=== PATIENT | male | born 1960 | race Caucasian/White ===

== ENCOUNTER 2018-01-15 15:17 | Observation (INO) | payer MEDICAID ==
[2018-01-15] MEDS ORDERED: Sodium Chloride 0.9% 1,000 ML IV SCH (16:45)
--- NOTE | 2018-01-15 16:48 | EDM.PDOC ---
ED HPI GENERAL MEDICAL PROBLEM - General Chief Complaint: General Stated Complaint: ELEVATED POTASSIUM IN URINE PER ESSENTIA Time Seen by Provider: 01/15/18 15:39 Source of Information: Reports: Patient History Limitations: Reports: No Limitations - History of Present Illness INITIAL COMMENTS - FREE TEXT/NARRATIVE: 57 yo diabetic presents to ER following post hospital clinic evaluation. Pt was found in clinic to have potassium of 6.2. He had recent hospitalization for sepsis related to right foot wound. Pt is in the process of moving to the area, he is currently staying with relative. He was feeling very good post DC until this Afternoon mild light headedness. Blood sugars have been high. snf insulin use. appetite has returned to normal. afebrile. denies CP SOB, or headache. Treatments LEAD TECHNICAL ARCHITECT: Reports: Other (see below) Other Treatments LEAD TECHNICAL ARCHITECT: seen in clinic foot ulcer Pain Score (Numeric/FACES): 3 - Related Data Allergies Allergy/AdvReac Type Severity Reaction Status Date / Time latex Allergy Hives Verified 01/15/18 15:38 Home Meds: Home Meds Aspirin [Halfprin] 81 mg PO DAILY 01/15/18 [History] Clindamycin HCl [Cleocin] 300 mg PO Q6H 01/15/18 [History] DULoxetine HCl [Cymbalta] 60 mg PO BID 01/15/18 [History] Gabapentin [Neurontin] 600 mg PO BID 01/15/18 [History] Insulin Aspart [NovoLOG] 1 unit SUBCUT TIDMEALS 01/15/18 [History] Insulin Glargine,Hum.Rec.Anlog [Basaglar Kwikpen U-100] 60 unit SQ BID 01/15/18 [History] Tamsulosin [Tamsulosin 24 Hr] 0.4 mg PO DAILY 01/15/18 [History] atorvaSTATin [Lipitor] 80 mg PO DAILY 01/15/18 [History] ED ROS GENERAL - Review of Systems Review Of Systems: See Below Constitutional: Denies: Fever, Chills, Malaise HEENT: Denies: Sinus Problem Respiratory: Denies: Shortness of Breath, Wheezing Cardiovascular: Denies: Chest Pain GI/Abdominal: Denies: Abdominal Pain, Nausea, Vomiting Neurological: Reports: Other (right foot wound) ED EXAM, GENERAL - Physical Exam Exam: See Below Exam Limited By: No Limitations General Appearance: Alert, WD/WN, No Apparent Distress Head: Atraumatic, Normocephalic Neck: Normal Inspection, Supple, Non-Tender, Full Range of Motion. No: Lymphadenopathy (R), Lymphadenopathy (L) Respiratory/Chest: No Respiratory Distress, Lungs Clear, Normal Breath Sounds, No Accessory Muscle Use, Chest Non-Tender Cardiovascular: Normal Peripheral Pulses, Regular Rate, Rhythm, No Edema, No Murmur GI/Abdominal: Normal Bowel Sounds, Soft, Non-Tender Neurological: Alert, Oriented Psychiatric: Normal Affect, Normal Mood Skin Exam: Warm, Dry, Intact, Wound/Incision (right foot/toes mild edema, mild erythemic, scaling skin, normal temp to touch) Course - Vital Signs Last Recorded V/S: Last Vital Signs Temp 35.0 C L 01/15/18 15:51 Pulse 91 01/15/18 18:43 Resp 16 01/15/18 18:43 BP 127/81 01/15/18 18:43 Pulse Ox 98 01/15/18 15:36 - Orders/Labs/Meds Orders: Active Orders 24 hr Category Date Time Status EKG Documentation Completion [RC] ASDIRECTED Care 01/15/18 16:38 Active Sodium Chloride 0.9% [Normal Saline] 1,000 ml Med 01/15/18 16:45 Active IV ASDIRECTED EKG 12 Lead [EK] Routine Ther 01/15/18 16:38 Ordered Medication Orders Sodium Chloride (Normal Saline) 1,000 mls @ 500 mls/hr IV ASDIRECTED LYNDSEY Last Admin: 01/15/18 17:25 Dose: 500 mls/hr Labs: Laboratory Tests 01/15/18 01/15/18 01/15/18 Range/Units 16:56 16:57 18:46 WBC 9.5 (4.5-11.0) K/uL RBC 4.50 (4.30-5.90) M/uL Hgb 14.4 (12.0-15.0) g/dL Hct 41.8 (40.0-54.0) % MCV 93 (80-98) fL MCH 32 H (27-31) pg MCHC 34 (32-36) % Plt Count 419 H (150-400) K/uL Neut % (Auto) 58 (36-66) % Lymph % (Auto) 34 (24-44) % [place] % (Auto) 6 (2-6) % Eos % (Auto) 2 (2-4) % Baso % (Auto) 1 (0-1) % Sodium 127 L (140-148) mmol/L Potassium 6.0 H (3.6-5.2) mmol/L Chloride 95 L (100-108) mmol/L Carbon Dioxide 23 (21-32) mmol/L Anion Gap 15.0 H (5.0-14.0) mmol/L BUN 33 H (7-18) mg/dL Creatinine 1.4 H (0.8-1.3) mg/dL Est Cr Clr Drug Dosing 64.47 mL/min Estimated GFR (MDRD) 53 L (>60) Glucose 348 H (74-106) mg/dL Calcium 9.2 (8.5-10.1) mg/dL Total Bilirubin 0.5 (0.2-1.0) mg/dL AST 35 (15-37) U/L ALT 86 H (12-78) U/L Alkaline Phosphatase 102 (46-116) U/L Troponin I < 0.017 (0.000-0.056) ng/mL Total Protein 8.0 (6.4-8.2) g/dL Albumin 3.6 (3.4-5.0) g/dL Globulin 4.4 H (2.3-3.5) g/dL Albumin/Globulin Ratio 0.8 L (1.2-2.2) Meds: Medications Generic Name Dose Route Start Last Admin Trade Name Freq PRN Reason Stop Dose Admin Sodium Chloride 1,000 mls @ 500 mls/hr 01/15/18 16:45 01/15/18 17:25 Normal Saline IV 500 mls/hr ASDIRECTED LYNDSEY Administration Discontinued Medications Generic Name Dose Route Start Last Admin Trade Name Freq PRN Reason Stop Dose Admin Insulin Human Regular 10 unit 01/15/18 18:04 01/15/18 18:26 Novolin R IVPUSH 01/15/18 18:05 10 units ONETIME ONE Administration - Re-Assessments/Exams Free Text/Narrative Re-Assessment/Exam: 01/15/18 18:10 fatigue improved, hungry. verbal hx collected from pt reports "potassium has been a yellow flag since 01/15/18 19:23 Pt will be admitted accepted by Dejah Anderson CNP Departure - Departure Time of Disposition: 19:23 Disposition: Admitted As Inpatient 68 Condition: Fair Clinical Impression: Acute kidney injury, Hyperkalemia - Discharge Information Referrals: Nasim Toledo MD [Primary Care Provider] - Forms: ED Department Discharge - My Orders Last 24 Hours: My Active Orders 01/15/18 16:38 EKG Documentation Completion [RC] ASDIRECTED EKG 12 Lead [EK] Routine 01/15/18 16:45 Sodium Chloride 0.9% [Normal Saline] 1,000 ml IV ASDIRECTED - Assessment/Plan Last 24 Hours: My Active Orders 01/15/18 16:38 EKG Documentation Completion [RC] ASDIRECTED EKG 12 Lead [EK] Routine 01/15/18 16:45 Sodium Chloride 0.9% [Normal Saline] 1,000 ml IV ASDIRECTED
[2018-01-15] MEDS ORDERED: Insulin Regular, Human 100 Units/ML 10 ML Vial IVPUSH ONE (18:04)
--- NOTE | 2018-01-15 20:27 | PCM.HP ---
H&P History of Present Illness - General Date of Service: 01/15/18 Admit Problem/Dx: Admission Diagnosis/Problem Admission Diagnosis/Problem Hyperkalemia Source of Information: Patient History Limitations: Reports: No Limitations - History of Present Illness Initial Comments - Free Text/Narative: 57 yo diabetic presents to ER following post hospital clinic evaluation. Pt was found in clinic to have potassium of 6.2. He had recent hospitalization for sepsis related to right foot wound. Pt is in the process of moving to the area, he is currently staying with relative. He was feeling very good post DC until this Afternoon mild light headedness. Blood sugars have been high. manager sales insulin use. appetite has returned to normal. afebrile. denies CP SOB, or headache. Hospital: 9 days, discharge on 01/12/2018 past medical: uncontrolled Diabetes Mellitus type 2, insulin dependent tobacco; quit 12/31/2017 Alcohol; quit 12/31/17 Social: Lives with Aunt at [facility] in [place], [place]., his father give him a monthly allowance to live on. Onset of Symptoms: Reports: Gradual Location: Reports: Other (reports no symptoms at this time.) Improves with: Reports: None Worsens with: Reports: None Associated Symptoms: Reports: No Other Symptoms foot ulcer Pain Score (Numeric/FACES): 3 - Related Data Allergies/Adverse Reactions: Allergies Allergy/AdvReac Type Severity Reaction Status Date / Time latex Allergy Hives Verified 01/15/18 15:38 Home Medications: Home Meds Aspirin [Halfprin] 81 mg PO DAILY 01/15/18 [History] Clindamycin HCl [Cleocin] 300 mg PO Q6H 01/15/18 [History] DULoxetine HCl [Cymbalta] 60 mg PO BID 01/15/18 [History] Gabapentin [Neurontin] 600 mg PO BID 01/15/18 [History] Insulin Aspart [NovoLOG] 1 unit SUBCUT TIDMEALS 01/15/18 [History] Insulin Glargine,Hum.Rec.Anlog [Basaglar Kwikpen U-100] 60 unit SQ BID 01/15/18 [History] Tamsulosin [Tamsulosin 24 Hr] 0.4 mg PO DAILY 01/15/18 [History] atorvaSTATin [Lipitor] 80 mg PO DAILY 07/16/18 [History] Past Medical History Cardiovascular History: Reports: Hypertension Other Cardiovascular History: hypercholesterolemia Respiratory History: Reports: Sleep Apnea Genitourinary History: Reports: Prostate Disorder, Other (See Below) Other Genitourinary History: acute kidney injury Musculoskeletal History: Reports: Arthritis, Back Pain, Chronic Neurological History: Reports: Neuropathy, Diabetic, Speech Problems Psychiatric History: Reports: Addiction, Learning Disability, Mood Swings, Psych Hospitalization(s) Other Psychiatric History: alcohol and tobacco addiction, has not used in 15 days. Endocrine/Metabolic History: Reports: Diabetes, Type II, Obesity/BMI 30+ Dermatologic History: Reports: Cellulitis Other Dermatologic History: right food - Infectious Disease History Infectious Disease History: Reports: Hepatitis C, Measles - Past Surgical History HEENT Surgical History: Reports: Cataract Surgery Other HEENT Surgeries/Procedures: premature retinopathy Male Surgical History: Reports: None Social & Family History - Family History Family Medical History: Noncontributory - Tobacco Use Smoking Status *Q: Former Smoker Years of Tobacco use: 32 Packs/Tins Daily: 1 Used Tobacco, but Quit: Yes Month/Year Tobacco Last Used: 12/2017 - Caffeine Use Caffeine Use: Reports: Coffee, Soda, Tea - Alcohol Use Date of Last Drink: 12/31/17 Time of Last Drink: 09:00 - Recreational Drug Use Recreational Drug Use: No Drug Use in Last 12 Months: No H&P Review of Systems - Review of Systems: Review Of Systems: See Below General: Reports: No Symptoms HEENT: Reports: No Symptoms Pulmonary: Reports: No Symptoms Cardiovascular: Reports: No Symptoms Gastrointestinal: Reports: Distension Genitourinary: Reports: No Symptoms Musculoskeletal: Reports: No Symptoms Skin: Reports: No Symptoms Psychiatric: Reports: No Symptoms Neurological: Reports: No Symptoms Hematologic/Lymphatic: Reports: No Symptoms Immunologic: Reports: No Symptoms Exam - Exam Exam: See Below - Vital Signs Vital Signs: Last Vital Signs Temp 35.0 C L 01/15/18 15:51 Pulse 91 01/15/18 18:43 Resp 16 01/15/18 18:43 BP 127/81 01/15/18 18:43 Pulse Ox 98 01/15/18 15:36 Weight: 101.2 kg - Exam General: Alert, Oriented, Cooperative HEENT: PERRLA, Conjunctiva Clear Neck: Supple, Trachea Midline Lungs: Clear to Auscultation, Normal Respiratory Effort Cardiovascular: Regular Rate, Regular Rhythm, Normal S1, Normal S2 GI/Abdominal Exam: Normal Bowel Sounds, Soft, Non-Tender, Distended (Male) Exam: Deferred Rectal (Males) Exam: Deferred Back Exam: Normal Inspection, Full Range of Motion Extremities: Normal Inspection, Normal Range of Motion, Non-Tender, No Pedal Edema, Normal Capillary Refill, Pedal Edema, Other (right foot with diabetic wound to toes 1-4, ulcer noted between toes 3-4 and sole of foot. scant discharge noted to dressing) Skin: Warm, Wound (right foot involving toes) Neurological: Reflexes Equal Bilateral, Strength Equal Bilateral, Normal Speech Neuro Extensive - Mental Status: Alert, Oriented x3, Normal Mood/Affect Neuro Extensive - Motor, Sensory, Reflexes: CN II-XII Intact Psychiatric: Alert, Normal Affect, Normal Mood - Patient Data Lab Results Last 24 hrs: Laboratory Results - last 24 hr 01/15/18 01/15/18 01/15/18 Range/Units 16:56 16:57 18:46 WBC 9.5 (4.5-11.0) K/uL RBC 4.50 (4.30-5.90) M/uL Hgb 14.4 (12.0-15.0) g/dL Hct 41.8 (40.0-54.0) % MCV 93 (80-98) fL MCH 32 H (27-31) pg MCHC 34 (32-36) % Plt Count 419 H (150-400) K/uL Neut % (Auto) 58 (36-66) % Lymph % (Auto) 34 (24-44) % [place] % (Auto) 6 (2-6) % Eos % (Auto) 2 (2-4) % Baso % (Auto) 1 (0-1) % Sodium 127 L (140-148) mmol/L Potassium 6.0 H (3.6-5.2) mmol/L Chloride 95 L (100-108) mmol/L Carbon Dioxide 23 (21-32) mmol/L Anion Gap 15.0 H (5.0-14.0) mmol/L BUN 33 H (7-18) mg/dL Creatinine 1.4 H (0.8-1.3) mg/dL Est Cr Clr Drug Dosing 64.47 mL/min Estimated GFR (MDRD) 53 L (>60) Glucose 348 H (74-106) mg/dL Calcium 9.2 (8.5-10.1) mg/dL Total Bilirubin 0.5 (0.2-1.0) mg/dL AST 35 (15-37) U/L ALT 86 H (12-78) U/L Alkaline Phosphatase 102 (46-116) U/L Troponin I < 0.017 (0.000-0.056) ng/mL Total Protein 8.0 (6.4-8.2) g/dL Albumin 3.6 (3.4-5.0) g/dL Globulin 4.4 H (2.3-3.5) g/dL Albumin/Globulin Ratio 0.8 L (1.2-2.2) Result Diagrams: 01/15/18 16:57 01/15/18 16:56 - Problem List (1) Diabetes mellitus type 2 with complications SNOMED Code(s): 54687546, 45147899753000 ICD Code: E11.8 - TYPE 2 DIABETES MELLITUS WITH UNSPECIFIED COMPLICATIONS Status: Acute Priority: High Current Visit: Yes Qualifiers: Diabetes mellitus manager sales insulin use: with manager sales use Qualified Code( s): E11.8 - Type 2 diabetes mellitus with unspecified complications; Z79.4 - emergency crew supervisor (current) use of insulin (2) Hyperkalemia SNOMED Code(s): 42176276 ICD Code: E87.5 - HYPERKALEMIA Status: Acute Priority: High Current Visit: Yes (3) Diabetic foot ulcer associated with type 2 diabetes mellitus SNOMED Code(s): 361754899 ICD Code: E11.621 - TYPE 2 DIABETES MELLITUS WITH FOOT ULCER; L97.509 - NON- PRESSURE CHRONIC ULCER OTH PRT UNSP FOOT W UNSP SEVERITY Status: Acute Current Visit: Yes Qualifiers: Diabetic foot ulcer location: toe Laterality: right Non-pressure ulcer stage: with other severity Qualified Code(s): E11.621 - Type 2 diabetes mellitus with foot ulcer; L97.518 - Non-pressure chronic ulcer of other part of right foot with other specified severity Problem List Initiated/Reviewed/Updated: Yes Orders Last 24hrs: Active Orders 24 hr Category Date Time Status Patient Status Manage Transfer [TRANSFER] Routine ADT 01/15/18 20:08 Ordered EKG Documentation Completion [RC] ASDIRECTED Care 01/15/18 16:38 Active Sodium Chloride 0.9% [Normal Saline] 1,000 ml Med 01/15/18 16:45 Active IV ASDIRECTED Resuscitation Status Routine Resus Stat 01/15/18 20:09 Ordered EKG 12 Lead [EK] Routine Ther 01/15/18 16:38 Ordered Medication Orders Sodium Chloride (Normal Saline) 1,000 mls @ 500 mls/hr IV ASDIRECTED LYNDSEY Last Admin: 01/15/18 17:25 Dose: 500 mls/hr Assessment/Plan Comment:: ASSESSMENT AND PLAN HYPERKALEMIA- -IV fluids for hydration, Normal Saline 125ml/hr -Kayeolate 30 gram po once -Telemetry -repeat labs in am: CBC,BMP UNCONTROLLED TYPE 2 DIABETES MELLITUS -Continue outpatient dosing of long-acting insulin, Detemir 60 units subcut in am, 60 units subcut in pm -4 times a day glucometers -Medium-dose sliding scale NovoLog -consult to Diabetic Nurse Educator -consult to Dietary Right Diabetic Foot Ulcer, including toes -01/16/18 appointment at [facility] with Dr. Bell -right foot keep in dry kerlix dressing -continue Clindamyacin po MAINTENANCE ISSUES -DVT prophylaxis; Lovenox 30 mg subcutaneous daily -GI prophylaxis; continue outpatient dosing of Protonix -Zarate catheter; not indicated -Nutrition; consistent carb diet -Nicotine dependence; not required CODE STATUS- FULL ADMISSION STATUS-Observation, I expect this patient to stay less than 24 hours, not to exceed 96 hours for evaluation and management of this problem. DISPOSITION-anticipate discharge to home after the hospital stay. PRIMARY CARE PROVIDER-Dr. Toledo, [facility], [place], [place]. Hospitalist: Dr. Nichols
[2018-01-15] MEDS ORDERED: Pantoprazole 40 MG Vial IVPUSH SCH (21:00)
[2018-01-15] MEDS ORDERED: Docusate Sodium 100 MG Cap PO PRN (21:17)
[2018-01-15] MEDS ORDERED: Zolpidem 5 MG Tab PO PRN (21:17)
[2018-01-15] MEDS ORDERED: Sodium Polystyrene Sulfonate 15 GM/60 ML Susp 60 ML Bot PO ONE (21:17)
[2018-01-15] MEDS ORDERED: LORazepam 2 MG/ML SDV IV PRN (21:17)
[2018-01-15] MEDS ORDERED: Ondansetron 4 MG Tab.DIS PO PRN (21:17)
[2018-01-15] MEDS ORDERED: Bisacodyl 5 MG Tab PO PRN (21:17)
[2018-01-15] MEDS ORDERED: Ondansetron 4 MG/2 ML SDV IV PRN (21:17)
[2018-01-15] MEDS ORDERED: Morphine 2 MG/ML Syringe IVPUSH PRN (21:17)
[2018-01-15] MEDS ORDERED: Acetaminophen 325 MG Tab PO PRN (21:17)
[2018-01-15] MEDS ORDERED: oxyCODONE 5 MG Tab PO PRN (21:17)
[2018-01-15] MEDS ORDERED: Albuterol 0.083% 2.5 MG/3 ML Neb Soln NEB PRN (21:17)
[2018-01-15] MEDS: Sodium Chloride 0.9% 1,000 ML IV SCH (21:30)
[2018-01-15] MEDS ORDERED: Enoxaparin 40 MG/0.4 ML Syringe SUBCUT SCH (21:30)
[2018-01-15] MEDS: Clindamycin HCl 150 MG Cap PO SCH (21:45)
[2018-01-15] MEDS: Gabapentin 300 MG Cap PO SCH (21:45)
[2018-01-15] MEDS: DULoxetine 30 MG Cap PO SCH (21:46)
[2018-01-15] MEDS ORDERED: Melatonin 3 MG Tab PO PRN (21:55)
[2018-01-16] MEDS: Clindamycin HCl 150 MG Cap PO SCH (02:38)
[2018-01-16] MEDS: Sodium Chloride 0.9% 1,000 ML IV SCH (05:10)
[2018-01-16] MEDS ORDERED: Insulin Aspart 100 Units/ML 3 ML Pen SUBCUT SCH (07:00)
[2018-01-16] MEDS ORDERED: Insulin Detemir 100 Units/ML 3 ML Pen SUBCUT SCH ×2 (07:30→16:30)
[2018-01-16] MEDS: DULoxetine 30 MG Cap PO SCH (08:36)
[2018-01-16] MEDS: Gabapentin 300 MG Cap PO SCH (08:36)
[2018-01-16] MEDS ORDERED: Clindamycin HCl 150 MG Cap PO SCH (10:00)
--- NOTE | 2018-01-16 10:05 | PCM.DCSUM1 ---
Discharge Summary - Hospital Course Brief History: 57-year-old male with insulin-dependent diabetes mellitus, right foot ulcer and recent admission for sepsis and acute kidney injury who presented with hyperkalemia and was admitted for management. Diagnosis: Stroke: No - Discharge Data Discharge Date: 01/16/18 Discharge Disposition: Home, Self-Care 01 Condition: Good - Discharge Diagnosis/Problem(s) (1) Hyperkalemia SNOMED Code(s): 22250093 ICD Code: E87.5 - HYPERKALEMIA Status: Acute Priority: High (2) Acute kidney injury SNOMED Code(s): 19978923 ICD Code: N17.9 - ACUTE KIDNEY FAILURE, UNSPECIFIED Status: Acute (3) Diabetes mellitus type 2 with complications SNOMED Code(s): 00370496, 23539918436171 ICD Code: E11.8 - TYPE 2 DIABETES MELLITUS WITH UNSPECIFIED COMPLICATIONS Status: Acute Priority: High Qualifiers: Diabetes mellitus fdc insulin use: with fdc use Qualified Code( s): E11.8 - Type 2 diabetes mellitus with unspecified complications; Z79.4 - detention (current) use of insulin (4) Diabetic foot ulcer associated with type 2 diabetes mellitus SNOMED Code(s): 254290535 ICD Code: E11.621 - TYPE 2 DIABETES MELLITUS WITH FOOT ULCER; L97.509 - NON- PRESSURE CHRONIC ULCER OTH PRT UNSP FOOT W UNSP SEVERITY Status: Acute Qualifiers: Diabetic foot ulcer location: toe Laterality: right Non-pressure ulcer stage: with other severity Qualified Code(s): E11.621 - Type 2 diabetes mellitus with foot ulcer; L97.518 - Non-pressure chronic ulcer of other part of right foot with other specified severity - Patient Summary/Data Consults: Consultations 01/15/18 21:17 Consult to Diabetic Nurse Specialist [CONS] Routine Comment: Physician Instructions: Consult to Final Inspector Movement Assembly [CONS] Routine Comment: Physician Instructions: Quantity: Hospital Course: Devin was sent to the emergency room from the clinic after his potassium level was noted to be 6.2. Repeat testing in the emergency room revealed a potassium of 6 with mild EKG changes. He was reporting some lightheadedness but overall did not feel bad. He received some IV fluids as well as a dose of Kayexalate at the time of admission. There were no acute events overnight following admission. The morning after admission his potassium level is down to 4.9. He feels well. He did have a mild decrease in his kidney function from baseline but this didn't improve with hydration overnight. I encouraged him to drink adequate fluids, approximately 64 ounces per day. He has follow-up this afternoon for his diabetic foot ulcer. He is tolerating his current antibiotic therapy for this infection. He is safe for discharge home at this time. He will be following up with Dr. Bell later today and with diabetic education tomorrow. He should have his potassium rechecked later in the week. - Patient Instructions Diet: Diabetic Diet Activity: As Tolerated Showering/Bathing: May Shower Notify Provider of: Fever, Increased Pain, Nausea and/or Vomiting Other/Special Instructions: 1. You were in the hospital for management of acute kidney injury (a reduction in your kidney function) from baseline as well as hyperkalemia (elevated potassium). Both your kidney function and potassium have normalized with IV fluids. I would recommend that you continue to drink plenty of water (64 ounces) per day to help maintain hydration and avoid additional problems. 2. Continue your usual home medications as previously prescribed. 3. Follow-up on Monday for a potassium recheck. 4. Follow-up as scheduled today with Dr. Bell for your foot ulcer evaluation. 5. Seek medical attention if you develop fever greater than 101 or if you have severe pain in your right foot. - Discharge Plan *PRESCRIPTION DRUG MONITORING PROGRAM REVIEWED*: Not Applicable *COPY OF PRESCRIPTION DRUG MONITORING REPORT IN PATIENT CRISTOBAL: Not Applicable Home Medications: Home Meds Aspirin [Halfprin] 81 mg PO DAILY 01/15/18 [History] Clindamycin HCl [Cleocin] 300 mg PO Q6H 01/15/18 [History] DULoxetine HCl [Cymbalta] 60 mg PO BID 01/15/18 [History] Gabapentin [Neurontin] 600 mg PO BID 01/15/18 [History] Insulin Aspart [NovoLOG] 1 unit SUBCUT TIDMEALS 01/15/18 [History] Insulin Glargine,Hum.Rec.Anlog [Basaglar Kwikpen U-100] 60 unit SQ BID 01/15/18 [History] Tamsulosin [Tamsulosin 24 Hr] 0.4 mg PO DAILY 01/15/18 [History] atorvaSTATin [Lipitor] 80 mg PO DAILY 01/15/18 [History] Patient Handouts: Hyperkalemia, [id number] Referrals: Nasim Toledo MD [Primary Care Provider] - 01/19/18 (f/u hospital stay for hyperkalemia, recheck potassium) - Discharge Summary/Plan Comment DC Time >30 min.: No (25) - Patient Data Vitals - Most Recent: Last Vital Signs Temp 35.3 C 01/16/18 08:00 Pulse 95 01/16/18 08:00 Resp 16 01/16/18 08:00 BP 125/72 01/16/18 08:00 Pulse Ox 99 01/16/18 08:00 Weight - Most Recent: 101.1 kg I&O - Last 24 hours: Intake & Output 01/15/18 01/16/18 01/16/18 22:59 06:59 14:59 Intake Total 0117 016 5891 Output Total 225 Balance 0795 248 2543 Lab Results - Last 24 hrs: Laboratory Results - last 24 hr 01/15/18 01/15/18 01/15/18 Range/Units 16:56 16:57 18:46 WBC 9.5 (4.5-11.0) K/uL RBC 4.50 (4.30-5.90) M/uL Hgb 14.4 (12.0-15.0) g/dL Hct 41.8 (40.0-54.0) % MCV 93 (80-98) fL MCH 32 H (27-31) pg MCHC 34 (32-36) % Plt Count 419 H (150-400) K/uL Neut % (Auto) 58 (36-66) % Lymph % (Auto) 34 (24-44) % [place] % (Auto) 6 (2-6) % Eos % (Auto) 2 (2-4) % Baso % (Auto) 1 (0-1) % Sodium 127 L (140-148) mmol/L Potassium 6.0 H (3.6-5.2) mmol/L Chloride 95 L (100-108) mmol/L Carbon Dioxide 23 (21-32) mmol/L Anion Gap 15.0 H (5.0-14.0) mmol/L BUN 33 H (7-18) mg/dL Creatinine 1.4 H (0.8-1.3) mg/dL Est Cr Clr Drug Dosing 64.47 mL/min Estimated GFR (MDRD) 53 L (>60) Glucose 348 H (74-106) mg/dL Calcium 9.2 (8.5-10.1) mg/dL Total Bilirubin 0.5 (0.2-1.0) mg/dL AST 35 (15-37) U/L ALT 86 H (12-78) U/L Alkaline Phosphatase 102 (46-116) U/L Troponin I < 0.017 (0.000-0.056) ng/mL Total Protein 8.0 (6.4-8.2) g/dL Albumin 3.6 (3.4-5.0) g/dL Globulin 4.4 H (2.3-3.5) g/dL Albumin/Globulin Ratio 0.8 L (1.2-2.2) 01/16/18 01/16/18 Range/Units 04:15 04:15 WBC 6.9 (4.5-11.0) K/uL RBC 4.27 L (4.30-5.90) M/uL Hgb 13.5 (12.0-15.0) g/dL Hct 39.8 L (40.0-54.0) % MCV 93 (80-98) fL MCH 32 H (27-31) pg MCHC 34 (32-36) % Plt Count 376 (150-400) K/uL Neut % (Auto) 37 (36-66) % Lymph % (Auto) 51 H (24-44) % San[place] % (Auto) 8 H (2-6) % Eos % (Auto) 3 (2-4) % Baso % (Auto) 1 (0-1) % Sodium 136 L (140-148) mmol/L Potassium 4.9 (3.6-5.2) mmol/L Chloride 103 (100-108) mmol/L Carbon Dioxide 27 (21-32) mmol/L Anion Gap 10.9 (5.0-14.0) mmol/L BUN 24 H (7-18) mg/dL Creatinine 1.0 (0.8-1.3) mg/dL Est Cr Clr Drug Dosing 90.25 mL/min Estimated GFR (MDRD) > 60 (>60) Glucose 186 H (74-106) mg/dL Calcium 8.7 (8.5-10.1) mg/dL Total Bilirubin (0.2-1.0) mg/dL AST (15-37) U/L ALT (12-78) U/L Alkaline Phosphatase (46-116) U/L Troponin I (0.000-0.056) ng/mL Total Protein (6.4-8.2) g/dL Albumin (3.4-5.0) g/dL Globulin (2.3-3.5) g/dL Albumin/Globulin Ratio (1.2-2.2) Med Orders - Current: Current Medications Acetaminophen (Tylenol) 650 mg PO Q4H PRN PRN Reason: Pain (Mild 1-3)/fever Albuterol (Proventil Neb Soln) 2.5 mg NEB Q4H PRN PRN Reason: Shortness Of Breath/wheezing Bisacodyl (Dulcolax) 5 mg PO DAILY PRN PRN Reason: Constipation Clindamycin HCl (Cleocin) 300 mg PO Q6H [facility] Docusate Sodium (Colace) 100 mg PO BID PRN PRN Reason: Constipation Duloxetine HCl (Cymbalta) 60 mg PO BID [facility] Last Admin: 01/16/18 08:36 Dose: 60 mg Enoxaparin Sodium (Lovenox) 40 mg SUBCUT Q24H [facility] Last Admin: 01/15/18 21:46 Dose: 40 mg Gabapentin (Neurontin) 600 mg PO BID [facility] Last Admin: 01/16/18 08:36 Dose: 600 mg Sodium Chloride (Normal Saline) 1,000 mls @ 125 mls/hr IV ASDIRECTED [facility] Last Admin: 01/16/18 05:10 Dose: 125 mls/hr Insulin Aspart (Novolog) 0 unit SUBCUT QIDACANDBED [facility]; Protocol Last Admin: 01/16/18 08:45 Dose: 2 units Insulin Detemir (Levemir) 60 unit SUBCUT 0730 [facility] Last Admin: 01/16/18 08:43 Dose: 60 units Insulin Detemir (Levemir) 50 unit SUBCUT 1630 [facility] Lorazepam (Ativan) 1 mg IV Q6H PRN PRN Reason: Nausea/Vomiting Melatonin (Melatonin) 3 mg PO BEDTIME PRN PRN Reason: Insomnia Last Admin: 01/15/18 22:31 Dose: 3 mg Morphine Sulfate (Morphine) 2 mg IVPUSH Q2H PRN PRN Reason: Pain (severe 7-10) Ondansetron HCl (Zofran Odt) 4 mg PO Q6H PRN PRN Reason: Nausea able to take PO Ondansetron HCl (Zofran) 4 mg IV Q4H PRN PRN Reason: Nausea/Vomiting Oxycodone HCl (Oxycodone) 5 mg PO Q4H PRN PRN Reason: Pain (moderate 4-6) Pantoprazole Sodium (Protonix Iv) 40 mg IVPUSH DAILY@1630 [facility] Zolpidem Tartrate (Ambien) 5 mg PO BEDTIME PRN PRN Reason: Sleep Discontinued Medications Clindamycin HCl (Cleocin) 300 mg PO Q6H [facility] Last Admin: 01/16/18 02:38 Dose: 300 mg Sodium Chloride (Normal Saline) 1,000 mls @ 500 mls/hr IV ASDIRECTED [facility] Last Admin: 01/15/18 17:25 Dose: 500 mls/hr Insulin Human Regular (Novolin R) 10 unit IVPUSH ONETIME ONE Stop: 01/15/18 18:05 Last Admin: 01/15/18 18:26 Dose: 10 units Pantoprazole Sodium (Protonix Iv) 40 mg IVPUSH DAILY [facility] Last Admin: 01/15/18 21:46 Dose: 40 mg Sodium Polystyrene Sulfonate (Kayexalate) 30 gm PO ONETIME ONE Stop: 01/15/18 21:18 Last Admin: 01/15/18 21:46 Dose: 30 gm - Exam Quality Assessment: Denies: Supplemental Oxygen General: Reports: Alert, Oriented, Cooperative, No Acute Distress Neck: Reports: Supple Lungs: Reports: Normal Respiratory Effort GI/Abdominal Exam: No Distention Skin: Reports: Warm, Dry Psy/Mental Status: Reports: Alert, Normal Affect
[2018-01-16] MEDS ORDERED: Pantoprazole 40 MG Vial IVPUSH SCH (16:30)
== END 2018-01-16 11:45 | disposition home or self-care (01) ==
LOC: JP.ED 15:17 → JP.2SS 20:08
PROVIDERS: ADMIT Internal Medicine; ATTEND Internal Medicine
DX: E87.5 Hyperkalemia (principal); N17.9 Acute kidney failure, unspecified; E11.621 Type 2 diabetes mellitus with foot ulcer; L97.519 Non-pressure chronic ulcer of other part of right foot with unspecified severity; E11.65 Type 2 diabetes mellitus with hyperglycemia; E11.40 Type 2 diabetes mellitus with diabetic neuropathy, unspecified; I10 Essential (primary) hypertension; E78.00 Pure hypercholesterolemia, unspecified; E66.9 Obesity, unspecified; Z87.891 Personal history of nicotine dependence; Z79.4 Long term (current) use of insulin; Z79.82 Long term (current) use of aspirin; Z79.899 Other long term (current) drug therapy
CPT/HCPCS: 36415; 80048; 80053; 82962; 84484; 85025; 93005; 96361; 96374; 99285; A9270; C9113; J1650; J7030

== ENCOUNTER 2020-10-19 11:02 | Emergency (ER) | payer MEDICAID ==
--- NOTE | 2020-10-19 12:15 | EDM.PDOC ---
ED HPI GENERAL MEDICAL PROBLEM - General Chief Complaint: General Stated Complaint: HIGH BLOOD PRESSURE Time Seen by Provider: 10/19/20 11:20 Source of Information: Reports: Patient History Limitations: Reports: No Limitations - History of Present Illness INITIAL COMMENTS - FREE TEXT/NARRATIVE: 60-year-old male with a lot of chronic risk factors including hypertension, diabetes, smoking, and history of alcohol abuse although he says he has not drank for 3 years. Over the past 3 weeks he seems to have more difficulty with activity, especially with shortness of breath. No increase in peripheral edema, at times he gets chest tightness but is not consistent. He has had some coughing and some mild wheezing intermittent. He had a very bad day on Monday, 4 days ago and after talking to his family they told him to go in right away today on Monday to see his primary provider to discuss the symptoms. He went into the clinic and they would not register him, they just brought him straight to the emergency room. He is a little confused why as he has no chest pain or shortness of breath at this time. No palpitations. He is also concerned that his blood pressure has been running higher for the last couple of weeks. He has not run out of medications. Onset: Gradual Duration: Week(s): (Seem to be worsening over the past 3 weeks) Location: Reports: Chest (Mild intermittent chest tightness, no pain, shortness of breath and easy fatigue with activity is his main complaint.) - Related Data Allergies Allergy/AdvReac Type Severity Reaction Status Date / Time latex Allergy Hives Verified 02/27/18 09:55 lisinopril AdvReac Hypotension Verified 02/27/18 09:55 Home Meds: Home Meds Aspirin [Halfprin] 81 mg PO DAILY 01/15/18 [History] DULoxetine HCl [Cymbalta] 60 mg PO BID 01/15/18 [History] Insulin Aspart [NovoLOG] 1 unit SUBCUT TIDMEALS 01/15/18 [History] Insulin Glargine,Hum.Rec.Anlog [Basaglar Kwikpen U-100] 60 unit SQ ACBREAKFAST 01/15/18 [History] Tamsulosin [Tamsulosin 24 Hr] 0.4 mg PO BEDTIME 01/15/18 [History] atorvaSTATin [Lipitor] 80 mg PO DAILY 07/16/18 [History] Acetaminophen [Tylenol Extra Strength] 1,000 mg PO Q6H PRN 01/23/18 [History] L.acidoph,Paracasei, B.lactis [Probiotic] 1 cap PO BID 01/23/18 [History] Levothyroxine [Synthroid] 50 mcg PO ACBREAKFAST 10/19/20 [History] Pregabalin 50 mg PO TID 10/19/20 [History] hydroCHLOROthiazide [Hydrochlorothiazide] 25 mg PO DAILY 10/19/20 [History] Past Medical History HEENT History: Reports: Impaired Vision Cardiovascular History: Reports: Hypertension Other Cardiovascular History: hypercholesterolemia Respiratory History: Reports: Sleep Apnea Gastrointestinal History: Reports: None Genitourinary History: Reports: Prostate Disorder, Other (See Below) Other Genitourinary History: acute kidney injury Musculoskeletal History: Reports: Arthritis, Neck Pain, Chronic Neurological History: Reports: Neuropathy, Diabetic, Speech Problems Psychiatric History: Reports: Addiction, Learning Disability, Mood Swings, Psych Hospitalization(s) Other Psychiatric History: alcohol and tobacco addiction, has not used in 15 days. Endocrine/Metabolic History: Reports: Diabetes, Type II, Obesity/BMI 30+ Immunologic History: Reports: None Oncologic (Cancer) History: Reports: None Dermatologic History: Reports: Cellulitis Other Dermatologic History: right food - Infectious Disease History Infectious Disease History: Reports: Chicken Pox, Measles, Mumps - Past Surgical History Head Surgeries/Procedures: Reports: None HEENT Surgical History: Reports: Cataract Surgery Other HEENT Surgeries/Procedures: premature retinopathy Cardiovascular Surgical History: Reports: None Respiratory Surgical History: Reports: None GI Surgical History: Reports: None Male Surgical History: Reports: None Endocrine Surgical History: Reports: None Neurological Surgical History: Reports: None Musculoskeletal Surgical History: Reports: None Dermatological Surgical History: Reports: None Social & Family History - Family History Family Medical History: No Pertinent Family History - Tobacco Use Tobacco Use Status *Q: Current Every Day Tobacco User Years of Tobacco use: 35 Packs/Tins Daily: 0.5 - Caffeine Use Caffeine Use: Reports: Coffee - Recreational Drug Use Recreational Drug Use: No ED ROS GENERAL - Review of Systems Review Of Systems: See Below Constitutional: Denies: Fever, Chills, Malaise, Decreased Appetite HEENT: Denies: Vision Change Respiratory: Reports: Shortness of Breath (With activity), Wheezing (Minimal, scattered and intermittent), Cough (Mild), Other (He has been told he has COPD) Cardiovascular: Reports: Chest Pain (Intermittent chest pressure with activity, not consistent). Denies: Palpitations GI/Abdominal: Reports: No Symptoms Skin: Denies: Erythema Neurological: Reports: Paresthesia (Patient has fairly significant peripheral neuropathy) Psychiatric: Reports: No Symptoms ED EXAM, GENERAL - Physical Exam Exam: See Below Exam Limited By: No Limitations General Appearance: Alert, No Apparent Distress Eye Exam: Bilateral Eye: Normal Inspection Head: Atraumatic Neck: Supple, Non-Tender Respiratory/Chest: Lungs Clear Cardiovascular: Regular Rate, Rhythm. No: Extra Beats GI/Abdominal: Soft, Non-Tender Extremities: Normal Inspection. No: Pedal Edema, Joint Swelling Neurological: Alert, Oriented Skin Exam: Warm, Dry #1 Interpretation EKG Date: 10/19/20 Rhythm: NSR QRS: RBBB (incomplete) ST-T: Normal Course - Vital Signs Last Recorded V/S: Last Vital Signs Temp 97.4 F 10/19/20 11:25 Pulse 96 10/19/20 11:25 Resp 19 10/19/20 11:25 BP 146/96 H 10/19/20 11:25 Pulse Ox 99 10/19/20 11:25 - Orders/Labs/Meds Orders: Active Orders 24 hr Category Date Time Status EKG 12 Lead [EK] Routine Ther 10/19/20 11:50 Ordered Labs: Laboratory Tests 10/19/20 10/19/20 10/19/20 Range/Units 11:48 11:48 11:48 WBC 7.9 (4.5-11.0) K/uL RBC 5.50 (4.30-5.90) M/uL Hgb 17.1 H D (12.0-15.0) g/dL Hct 49.2 (40.0-54.0) % MCV 90 (80-98) fL MCH 31 (27-31) pg MCHC 35 (32-36) % Plt Count 207 (150-400) K/uL Neut % (Auto) 61 (36-66) % Lymph % (Auto) 29 (24-44) % [place] % (Auto) 7 H (2-6) % Eos % (Auto) 2 (2-4) % Baso % (Auto) 1 (0-1) % D-Dimer, Quantitative 248.76 (0.0-500.0) ng/mL Sodium 142 (140-148) mmol/L Potassium 4.8 (3.6-5.2) mmol/L Chloride 100 (100-108) mmol/L Carbon Dioxide 33 H (21-32) mmol/L Anion Gap 13.8 (5.0-14.0) mmol/L BUN 16 (7-18) mg/dL Creatinine 1.2 (0.8-1.3) mg/dL Est Cr Clr Drug Dosing 71.47 mL/min Estimated GFR (MDRD) > 60 (>60) Glucose 306 H (74-106) mg/dL Calcium 10.2 H D (8.5-10.1) mg/dL Total Bilirubin 0.6 (0.2-1.0) mg/dL AST 28 (15-37) U/L ALT 53 (12-78) U/L Alkaline Phosphatase 66 (46-116) U/L Troponin I < 0.017 (0.000-0.056) ng/mL Total Protein 7.1 (6.4-8.2) g/dL Albumin 4.2 (3.4-5.0) g/dL Globulin 2.9 (2.3-3.5) g/dL Albumin/Globulin Ratio 1.4 (1.2-2.2) - Re-Assessments/Exams Free Text/Narrative Re-Assessment/Exam: 10/19/20 12:44 Patient remained comfortable the entire time he was in the emergency room. EKG actually looks somewhat improved from 2 years ago with less voltage, still a slight bundle branch block. Blood pressure was 160/100 on discharge, 146/96 on arrival. Troponin was 0, D-dimer was normal, O2 sats were normal as well as respiratory rate. No significant cough. The rest of his labs were reassuring other than his glucose at 306 but this was not fasting. I did set this patient up for a nuclear stress test, and discussed his condition with his primary provider Antonio Anders and he will follow up with Antonio after the test. I did tell him that he can double his hydrochlorothiazide until seeing Antonio Anders but I made no other medication changes. Departure - Departure Time of Disposition: 12:59 Disposition: Home, Self-Care 01 Clinical Impression: Dyspnea on exertion, Insulin dependent type 2 diabetes mellitus, Tobacco dependence HTN (hypertension) Qualifiers: Hypertension type: essential hypertension Qualified Code(s): I10 - Essential (primary) hypertension - Discharge Information Instructions: Shortness of Breath, Adult, [id number] Referrals: PCP,None [Primary Care Provider] - Forms: ED Department Discharge Care Plan Goals: Try to reduce smoking, see Antonio Anders after your stress test. You may increase your diuretic to 50 mg daily to help with blood pressure, but no other medication changes are recommended at this time. Return to the emergency room at any time at your you develop chest pain shortness of breath especially if it is persistent Sepsis Event Note (ED) - Evaluation Sepsis Screening Result: No Definite Risk - Focused Exam Vital Signs: Vital Signs Temp Pulse Resp BP Pulse Ox 10/19/20 11:25 97.4 F 96 19 146/96 H 99 10/19/20 11:16 96 19 146/96 H 99 - My Orders Last 24 Hours: My Active Orders 10/19/20 11:50 EKG 12 Lead [EK] Routine - Assessment/Plan Last 24 Hours: My Active Orders 10/19/20 11:50 EKG 12 Lead [EK] Routine
== END 2020-10-19 13:00 | disposition home or self-care (01) ==
LOC: JP.ED 11:02
DX: I10 Essential (primary) hypertension (principal); E78.00 Pure hypercholesterolemia, unspecified; F17.200 Nicotine dependence, unspecified, uncomplicated; E66.9 Obesity, unspecified; Z68.41 Body mass index [BMI] 40.0-44.9, adult; N42.9 Disorder of prostate, unspecified; M19.90 Unspecified osteoarthritis, unspecified site; E11.40 Type 2 diabetes mellitus with diabetic neuropathy, unspecified; Z91.040 Latex allergy status; Z88.8 Allergy status to other drugs, medicaments and biological substances; Z79.82 Long term (current) use of aspirin; Z79.4 Long term (current) use of insulin; Z79.899 Other long term (current) drug therapy
CPT/HCPCS: 36415; 80053; 84484; 85025; 85379; 93005; 99283; 99285-25

== ENCOUNTER 2021-01-12 16:32 | Emergency (ER) | payer MEDICAID ==
[2021-01-12] MEDS ORDERED: Sodium Chloride 0.9% 10 ML Syringe FLUSH PRN (16:51)
[2021-01-12] MEDS ORDERED: Morphine 4 MG/ML Syringe IVPUSH PRN (16:51)
[2021-01-12] MEDS ORDERED: Nitroglycerin 0.4 MG Tab.SL SL PRN (16:51)
[2021-01-12] MEDS ORDERED: Aspirin 81 MG Tab.Chew PO ONE (16:51)
[2021-01-12] MEDS ORDERED: Ondansetron 4 MG/2 ML SDV IVPUSH ONE (16:53)
--- NOTE | 2021-01-12 16:54 | EDM.PDOC ---
ED HPI GENERAL MEDICAL PROBLEM - General Chief Complaint: Cardiovascular Problem Stated Complaint: HIGH BP,DIZZY Time Seen by Provider: 01/12/21 16:48 Source of Information: Reports: Patient, RN Notes Reviewed History Limitations: Reports: No Limitations - History of Present Illness INITIAL COMMENTS - FREE TEXT/NARRATIVE: 60-year-old gentleman presents emergency department day complaint of chest pain, also complains of dizziness sweaty some nausea, he states his symptoms have been going on for about 24 hours - Related Data Allergies Allergy/AdvReac Type Severity Reaction Status Date / Time latex Allergy Hives Verified 01/12/21 16:50 lisinopril AdvReac Hypotension Verified 01/12/21 16:50 Home Meds: Home Meds Aspirin [Halfprin] 81 mg PO DAILY 01/15/18 [History] DULoxetine HCl [Cymbalta] 60 mg PO BID 01/15/18 [History] Insulin Aspart [NovoLOG] 1 unit SUBCUT TIDMEALS 01/15/18 [History] Insulin Glargine,Hum.Rec.Anlog [Basaglar Kwikpen U-100] 60 unit SQ ACBREAKFAST 01/15/18 [History] Tamsulosin [Tamsulosin 24 Hr] 0.4 mg PO BEDTIME 01/15/18 [History] atorvaSTATin [Lipitor] 80 mg PO DAILY 01/15/18 [History] Acetaminophen [Tylenol Extra Strength] 1,000 mg PO Q6H PRN 01/23/18 [History] L.acidoph,Paracasei, B.lactis [Probiotic] 1 cap PO BID 01/23/18 [History] Levothyroxine [Synthroid] 50 mcg PO ACBREAKFAST 10/19/20 [History] Pregabalin 50 mg PO TID 10/19/20 [History] hydroCHLOROthiazide [Hydrochlorothiazide] 25 mg PO DAILY 10/19/20 [History] Dapagliflozin Propanediol [Farxiga] 10 mg PO DAILY 01/12/21 [History] Liraglutide [Victoza] 1.5 mg SQ DAILY 01/12/21 [History] Past Medical History HEENT History: Reports: Impaired Vision Cardiovascular History: Reports: High Cholesterol, Hypertension Respiratory History: Reports: Sleep Apnea Genitourinary History: Reports: Prostate Disorder, Other (See Below) Other Genitourinary History: acute kidney injury Musculoskeletal History: Reports: Arthritis, Neck Pain, Chronic Neurological History: Reports: Neuropathy, Diabetic, Speech Problems Psychiatric History: Reports: Addiction, Learning Disability, Mood Swings, Psych Hospitalization(s) Other Psychiatric History: alcohol and tobacco addiction, has not used in 15 days. Endocrine/Metabolic History: Reports: Diabetes, Type II, Obesity/BMI 30+ Immunologic History: Reports: None Oncologic (Cancer) History: Reports: None Dermatologic History: Reports: Cellulitis Other Dermatologic History: right food - Infectious Disease History Infectious Disease History: Reports: Chicken Pox, Measles, Mumps - Past Surgical History Head Surgeries/Procedures: Reports: None HEENT Surgical History: Reports: Cataract Surgery Other HEENT Surgeries/Procedures: premature retinopathy Cardiovascular Surgical History: Reports: None Respiratory Surgical History: Reports: None GI Surgical History: Reports: None Male Surgical History: Reports: None Endocrine Surgical History: Reports: None Neurological Surgical History: Reports: None Musculoskeletal Surgical History: Reports: None Dermatological Surgical History: Reports: None Social & Family History - Family History Family Medical History: No Pertinent Family History - Caffeine Use Caffeine Use: Reports: Coffee ED ROS GENERAL - Review of Systems Review Of Systems: See Below Constitutional: Reports: Diaphoresis HEENT: Reports: No Symptoms (Resolved follow-up was done in 2 weeks) Respiratory: Reports: Shortness of Breath (weeks for) Cardiovascular: Reports: Chest Pain GI/Abdominal: Reports: Nausea. Denies: Vomiting ED EXAM, GENERAL - Physical Exam Exam: See Below Exam Limited By: No Limitations General Appearance: Alert, No Apparent Distress Respiratory/Chest: No Respiratory Distress, Lungs Clear, Normal Breath Sounds, No Accessory Muscle Use, Chest Non-Tender Cardiovascular: Regular Rate, Rhythm, No Murmur GI/Abdominal: Soft, Non-Tender #1 Interpretation EKG Date: 01/12/21 Time: 17:17 Rhythm: NSR [place]: LAD-Left [place] Deviation P-Wave: Present QRS: Normal ST-T: Normal QT: Normal Comparison: No Change Course - Vital Signs Last Recorded V/S: Last Vital Signs Temp 94.9 F L 01/12/21 18:22 Pulse 73 01/12/21 18:22 Resp 19 01/12/21 18:22 BP 157/103 H 01/12/21 18:22 Pulse Ox 96 01/12/21 18:22 - Orders/Labs/Meds Orders: Active Orders 24 hr Category Date Time Status Cardiac Monitoring [RC] .As Directed Care 01/12/21 16:51 Active EKG Documentation Completion [RC] ASDIRECTED Care 01/12/21 16:52 Active Peripheral IV Care [RC] . DIRECTED Care 01/12/21 16:52 Active Chest 1V Frontal [CR] Stat Exams 01/12/21 16:52 Taken Morphine Med 01/12/21 16:51 Active 4 mg IVPUSH Q10M PRN Nitroglycerin [Nitrostat] Med 01/12/21 16:51 Active 0.4 mg SL Q5M PRN Sodium Chloride 0.9% [Saline Flush] Med 01/12/21 16:51 Active 10 ml FLUSH ASDIRECTED PRN Peripheral IV Insertion Adult [OM.PC] Stat Oth 01/12/21 16:51 Ordered Saline Lock Insert [OM.PC] Stat Oth 01/12/21 16:51 Ordered EKG 12 Lead [EK] Stat Ther 01/12/21 16:52 Ordered Medication Orders Morphine Sulfate (Morphine 4 Mg/Ml Syringe) 4 mg IVPUSH Q10M PRN PRN Reason: Chest Pain Stop: 01/13/21 16:51 Last Admin: 01/12/21 17:02 Dose: 4 mg Documented by: SAEED Nitroglycerin (Nitroglycerin 0.4 Mg Tab.Sl) 0.4 mg SL Q5M PRN PRN Reason: Chest Pain Stop: 01/13/21 16:51 Last Admin: 01/12/21 16:59 Dose: 0.4 mg Documented by: SAEED Sodium Chloride (Sodium Chloride 0.9% 10 Ml Syringe) 10 ml FLUSH ASDIRECTED PRN PRN Reason: Keep Vein Open Last Admin: 01/12/21 17:04 Dose: 10 ml Documented by: SAEED Labs: Laboratory Tests 01/12/21 01/12/21 01/12/21 Range/Units 16:50 16:50 16:50 WBC 8.1 (4.5-11.0) K/uL RBC 5.32 (4.30-5.90) M/uL Hgb 16.6 H (12.0-15.0) g/dL Hct 47.7 (40.0-54.0) % MCV 90 (80-98) fL MCH 31 (27-31) pg MCHC 35 (32-36) % Plt Count 262 (150-400) K/uL Neut % (Auto) 50.7 (36-66) % Lymph % (Auto) 37.0 (24-44) % [place] % (Auto) 8.5 H (2-6) % Eos % (Auto) 3.1 (2-4) % Baso % (Auto) 0.7 (0-1) % Sodium 138 L (140-148) mmol/L Potassium 4.0 (3.6-5.2) mmol/L Chloride 99 L (100-108) mmol/L Carbon Dioxide 30 (21-32) mmol/L Anion Gap 13.0 (5.0-14.0) mmol/L BUN 11 (7-18) mg/dL Creatinine 1.0 (0.8-1.3) mg/dL Est Cr Clr Drug Dosing 88.38 mL/min Estimated GFR (MDRD) > 60 (>60) Glucose 336 H (74-106) mg/dL Lactic Acid 1.5 (0.4-2.0) mmol/L Calcium 9.1 (8.5-10.1) mg/dL Total Bilirubin 0.6 (0.2-1.0) mg/dL AST 20 (15-37) U/L ALT 47 (12-78) U/L Alkaline Phosphatase 68 (46-116) U/L Troponin I < 0.017 (0.000-0.056) ng/mL Total Protein 7.0 (6.4-8.2) g/dL Albumin 2.4 L (3.4-5.0) g/dL Globulin 4.6 H (2.3-3.5) g/dL Albumin/Globulin Ratio 0.5 L (1.2-2.2) Meds: Medications Generic Name Dose Route Start Last Admin Trade Name Freq PRN Reason Stop Dose Admin Morphine Sulfate 4 mg 01/12/21 16:51 01/12/21 17:02 Morphine 4 Mg/Ml Syringe IVPUSH 01/13/21 16:51 4 mg Q10M PRN Administration Chest Pain Nitroglycerin 0.4 mg 01/12/21 16:51 01/12/21 16:59 Nitroglycerin 0.4 Mg Tab.Sl SL 01/13/21 16:51 0.4 mg Q5M PRN Administration Chest Pain Sodium Chloride 10 ml 01/12/21 16:51 01/12/21 17:04 Sodium Chloride 0.9% 10 Ml Syringe FLUSH 10 ml ASDIRECTED PRN Administration Keep Vein Open Discontinued Medications Generic Name Dose Route Start Last Admin Trade Name Freq PRN Reason Stop Dose Admin Aspirin 324 mg 01/12/21 16:51 01/12/21 16:58 Aspirin 81 Mg Tab.Chew PO 01/12/21 16:52 324 mg ONETIME ONE Administration Meclizine HCl 25 mg 01/12/21 18:12 01/12/21 18:20 Meclizine 25 Mg Tab PO 01/12/21 18:13 25 mg ONETIME ONE Administration Ondansetron HCl 4 mg 01/12/21 16:53 01/12/21 17:00 Ondansetron 4 Mg/2 Ml Sdv IVPUSH 01/12/21 16:54 4 mg ONETIME ONE Administration Departure - Departure Time of Disposition: 18:31 Disposition: Home, Self-Care 01 Condition: Fair Clinical Impression: Dizzy Instructions: Dizziness, [id number] Referrals: Antonio Anders NP [Primary Care Provider] - Forms: ED Department Discharge Additional Instructions: Use the meclizine as needed for dizzy symptoms, please followup with your primary care provider in 3-5 days if not better, please call return to the emergency department with worsening of symptoms. Sepsis Event Note (ED) - Focused Exam Vital Signs: Vital Signs Temp Pulse Resp BP BP Pulse Ox 01/12/21 18:22 94.9 F L 73 19 157/103 H 96 01/12/21 17:42 73 19 157/103 H 96 01/12/21 16:59 172/103 H 01/12/21 16:48 94.9 F L 79 18 172/103 H 99 - My Orders Last 24 Hours: My Active Orders 01/12/21 16:51 Cardiac Monitoring [RC] .As Directed Morphine 4 mg IVPUSH Q10M PRN Nitroglycerin [Nitrostat] 0.4 mg SL Q5M PRN Sodium Chloride 0.9% [Saline Flush] 10 ml FLUSH ASDIRECTED PRN Peripheral IV Insertion Adult [OM.PC] Stat Saline Lock Insert [OM.PC] Stat 01/12/21 16:52 EKG Documentation Completion [RC] ASDIRECTED Peripheral IV Care [RC] . DIRECTED Chest 1V Frontal [CR] Stat EKG 12 Lead [EK] Stat - Assessment/Plan Last 24 Hours: My Active Orders 01/12/21 16:51 Cardiac Monitoring [RC] .As Directed Morphine 4 mg IVPUSH Q10M PRN Nitroglycerin [Nitrostat] 0.4 mg SL Q5M PRN Sodium Chloride 0.9% [Saline Flush] 10 ml FLUSH ASDIRECTED PRN Peripheral IV Insertion Adult [OM.PC] Stat Saline Lock Insert [OM.PC] Stat 01/12/21 16:52 EKG Documentation Completion [RC] ASDIRECTED Peripheral IV Care [RC] . DIRECTED Chest 1V Frontal [CR] Stat EKG 12 Lead [EK] Stat Plan: Assessment Acuity = acute Site and laterality = dizzy Etiology = probably related to medications Manifestations = chest pain dizziness now resolved Location of injury = Home Lab values = CBC, CMP, troponin, EKG, chest x-ray all within normal limits Plan He had good improvement with meclizine plan is discharged home with meclizine 1 tab p.o. 3 times daily as needed 25 mg follow-up primary care 3 to 5 days if not better This note was dictated using [employer] voice recognition software please call with any questions on syntax or grammar.
[2021-01-12] MEDS ORDERED: Meclizine 25 MG Tab PO ONE (18:12)
--- NOTE | 2021-01-13 08:55 | CR ---
CHEST: Portable 01/12/2021 at 5:06 PM CLINICAL HISTORY:Chest pain COMPARISON:2019 CT FINDINGS: The heart size, pulmonary vascularity and hilar structures are normal. No infiltrate effusion or pneumothorax is seen. IMPRESSION: No acute cardiopulmonary process.
== END 2021-01-12 18:42 | disposition home or self-care (01) ==
LOC: JP.ED 16:32
DX: R42 Dizziness and giddiness (principal); E78.00 Pure hypercholesterolemia, unspecified; I10 Essential (primary) hypertension; M19.90 Unspecified osteoarthritis, unspecified site; E11.40 Type 2 diabetes mellitus with diabetic neuropathy, unspecified; E66.9 Obesity, unspecified; Z68.30 Body mass index [BMI] 30.0-30.9, adult; Z91.040 Latex allergy status; Z88.8 Allergy status to other drugs, medicaments and biological substances; Z79.82 Long term (current) use of aspirin; Z79.4 Long term (current) use of insulin; Z79.899 Other long term (current) drug therapy
CPT/HCPCS: 36415; 71045; 80053; 83605; 84484; 85025; 93005; 96374; 96375; 99285; A9270; J2270; J2405

== ENCOUNTER 2021-04-30 08:57 | Day surgery (SDC) | payer MEDICAID ==
[~2021-04-30 08:57] MED LIST: Bupivacaine 0.5% 50 ML MDV ONE; Lidocaine 1% with EPINEPHrine 1:100,000 50 ML MDV ONE
[2021-04-30] MEDS ORDERED: Sodium Chloride 0.9% 1,000 ML IV SCH (10:30)
[2021-04-30] MEDS ORDERED: ceFAZolin 2 GM in Premix Bag 1 BAG IV ONE (11:15)
[2021-04-30] MEDS ORDERED: Propofol 200 MG/20 ML SDV ONE ×2 (11:31→11:52)
[2021-04-30] MEDS ORDERED: fentaNYL 100 MCG/2 ML SDV ONE (11:31)
[2021-04-30] MEDS ORDERED: Midazolam 1 MG/ML 2 ML SDV ONE (11:31)
[2021-04-30] MEDS ORDERED: Acetaminophen/HYDROcodone 325-5 MG Tab PO ONE (13:00)
--- NOTE | 2021-04-30 13:07 | OR ---
DATE OF PROCEDURE: 04/30/2021 SURGEON: Enrique Bell MD PROCEDURE: Excision of lipoma, 2.1 x 3.2 cm lipoma. COMPLICATION: None. CREDIT COMPLIANCE OFFICER: None. ANESTHESIA: MAC. RISKS: Risks, benefits, alternatives, and limitations including, but not limited to infection, bleeding, chronic wounds, chronic pain, hematoma, seroma, and other risks not listed here were explained to the patient and he wished to proceed. PROCEDURE IN DETAIL: The patient was placed in prone position. A 4 cm incision was made with a 15 blade, carried down with electrocautery. Lipoma was readily identified. This was circumnavigated by using blunt dissection and some electrocautery. This was delivered extracorporeally. The wound was irrigated, inspected for bleeding, none was noted. The wound was closed by 3-0 Vicryl in 2 layers and 3-0 Prolene in interrupted fashion. The patient tolerated the procedure well. Enrique Bell MD /[id number]
== END 2021-04-30 13:35 | disposition home or self-care (01) ==
LOC: JP.SDS 08:57
PROVIDERS: ATTEND Surgery
DX: D17.0 Benign lipomatous neoplasm of skin and subcutaneous tissue of head, face and neck (principal); I10 Essential (primary) hypertension; E11.9 Type 2 diabetes mellitus without complications; K21.9 Gastro-esophageal reflux disease without esophagitis; Z87.891 Personal history of nicotine dependence; Z88.8 Allergy status to other drugs, medicaments and biological substances
CPT/HCPCS: 21552; A9270; J0690; J2250; J2704; J3010; J3490; J7030

== ENCOUNTER 2021-12-05 07:48 | Emergency (ER) | payer OTHER, MEDICAID ==
[2021-12-05] MEDS ORDERED: Sodium Chloride 0.9% 10 ML Syringe FLUSH PRN (08:00)
[2021-12-05] MEDS ORDERED: Lidocaine 2% Jelly 10 ML Urojet MUCMEM ONE (08:20)
== END 2021-12-05 10:25 | disposition home or self-care (01) ==
LOC: JP.ED 07:48
DX: S06.369A Traumatic hemorrhage of cerebrum, unspecified, with loss of consciousness of unspecified duration, initial encounter (principal); S22.42XA Multiple fractures of ribs, left side, initial encounter for closed fracture; S60.519A Abrasion of unspecified hand, initial encounter; N30.01 Acute cystitis with hematuria; R33.9 Retention of urine, unspecified; E78.00 Pure hypercholesterolemia, unspecified; I10 Essential (primary) hypertension; E11.9 Type 2 diabetes mellitus without complications; E66.9 Obesity, unspecified; Z68.30 Body mass index [BMI] 30.0-30.9, adult; Z91.040 Latex allergy status; Z88.8 Allergy status to other drugs, medicaments and biological substances; Z79.82 Long term (current) use of aspirin; Z79.899 Other long term (current) drug therapy; Z79.4 Long term (current) use of insulin; V29.9XXA Motorcycle rider (driver) (passenger) injured in unspecified traffic accident, initial encounter
CPT/HCPCS: 36415; 51702; 71045; 80048; 81001; 84145; 85025; 99283; 99284; J3490

== ENCOUNTER 2021-12-09 22:51 | Emergency (ER) | payer MEDICAID ==
[2021-12-09] MEDS ORDERED: Lidocaine 2% Jelly 10 ML Urojet MUCMEM ONE (23:14)
[2021-12-10] MEDS ORDERED: Fluconazole 150 MG Tab PO ONE (00:40)
== END 2021-12-10 01:24 | disposition home or self-care (01) ==
LOC: JP.ED 22:51
DX: B37.49 Other urogenital candidiasis (principal); R33.9 Retention of urine, unspecified; E11.9 Type 2 diabetes mellitus without complications; E78.00 Pure hypercholesterolemia, unspecified; I10 Essential (primary) hypertension; E66.9 Obesity, unspecified; Z68.30 Body mass index [BMI] 30.0-30.9, adult; Z91.040 Latex allergy status; Z88.8 Allergy status to other drugs, medicaments and biological substances; Z79.4 Long term (current) use of insulin; Z79.82 Long term (current) use of aspirin; Z79.899 Other long term (current) drug therapy
CPT/HCPCS: 36415; 51702; 81001; 85025; 99282; 99283-25; A9270-GY

== ENCOUNTER 2022-12-11 00:16 | Emergency (ER) | payer MEDICAID ==
[2022-12-11 01:20] LABS: BASOPHILS ABSOLUTE AUTO 0.08 K/uL (0.00-0.10); BASOPHILS PERCENT AUTO 0.7 % (0.1-1.3); EOSINOPHILS ABSOLUTE AUTO 0.28 K/uL (0.00-0.40); EOSINOPHILS PERCENT AUTO 2.6 % (0.0-5.4); HEMATOCRIT 49.4 % (38.4-49.7); HEMOGLOBIN 17.9 g/dL (12.9-16.9); IMMATURE GRAN ABSOLUTE AUTO 0.04 K/uL (0.00-0.23); IMMATURE GRAN PERCENT AUTO 0.4 % (0.0-0.7); LYMPHOCYTES ABSOLUTE AUTO 4.77 K/uL (0.8-3.3); MEAN CORPUSCULAR HGB CONC 36.2 g/dL (31.6-35.5); MEAN CORPUSCULAR VOLUME 85.6 fL (81.4-99.0); MONOCYTES PERCENT AUTO 5.5 % (3.3-12.6); NEUTROPHILS ABSOLUTE AUTO 5.07 K/uL (1.0-7.6); NEUTROPHILS PERCENT AUTO 46.8 % (40.0-78.1); PLATELET COUNT,PLT 207 K/uL (130-375); RED BLOOD CELL COUNT 5.77 M/uL (4.14-5.76); WHITE BLOOD CELL COUNT,WBC 10.8 K/uL (3.2-11.0)
[2022-12-11 01:48] LABS: AMPHETAMINES SCREEN, URINE NEGATIVE (NEGATIVE); BARBITURATE SCREEN,URINE NEGATIVE (NEGATIVE); BENZODIAZEPINES SCREEN,URINE NEGATIVE (NEGATIVE); METHADONE SCREEN, URINE NEGATIVE (NEGATIVE); METHAMPHETAMINES SCREEN, URINE NEGATIVE (NEGATIVE); OXYCODONE SCREEN,URINE NEGATIVE (NEGATIVE); PROPOXYPHENE SCREEN,URINE NEGATIVE (NEGATIVE); THC SCREEN,URINE 50 NG/ML NEGATIVE (NEGATIVE)
[2022-12-11 01:53] LABS: A/G RATIO 1.1 (1.2-2.2); ALANINE AMINOTRANSFERASE,ALT 41 U/L (12-78); ALKALINE PHOSPHATASE 80 U/L (46-116); ANION GAP 13.8 mmol/L (5.0-14.0); ASPARTATE AMNIOTRANSFERASE,AST 21 U/L (15-37); BILIRUBIN TOTAL 0.6 mg/dL (0.2-1.0); BLOOD UREA NITROGEN,BUN 19 mg/dL (7-18); CALCIUM 8.9 mg/dL (8.5-10.1); CARBON DIOXIDE,CO2 29 mmol/L (21-32); CHLORIDE,CL 95 mmol/L (100-108); CREATININE 1.2 mg/dL (0.8-1.3); EST CRCL DRUG DOSING (CG) 65.46 mL/min; ESTIMATED GFR 69 mL/min (>60); GLUCOSE RANDOM 340 mg/dL (74-106); POTASSIUM,K 3.8 mmol/L (3.6-5.2); PROTEIN TOTAL,TP 7.6 g/dL (6.4-8.2); SODIUM,NA 134 mmol/L (140-148)
== END 2022-12-11 10:44 | disposition home or self-care (01) ==
LOC: JP.ED 00:16
DX: T50.902A Poisoning by unspecified drugs, medicaments and biological substances, intentional self-harm, initial encounter (principal); F10.920 Alcohol use, unspecified with intoxication, uncomplicated; E78.00 Pure hypercholesterolemia, unspecified; I10 Essential (primary) hypertension; E11.40 Type 2 diabetes mellitus with diabetic neuropathy, unspecified; E66.9 Obesity, unspecified; Z68.28 Body mass index [BMI] 28.0-28.9, adult; Z91.040 Latex allergy status; Z88.8 Allergy status to other drugs, medicaments and biological substances; Z20.822 Contact with and (suspected) exposure to COVID-19
CPT/HCPCS: 36415; 80053; 80305-QW; 80307; 84443; 85025; 99284; U0002

== ENCOUNTER 2023-02-10 19:20 | Inpatient (IN) | payer MEDICAID ==
[2023-02-10 20:04] LABS: BASOPHILS ABSOLUTE AUTO 0.06 K/uL (0.00-0.10); BASOPHILS PERCENT AUTO 0.4 % (0.1-1.3); EOSINOPHILS ABSOLUTE AUTO 0.03 K/uL (0.00-0.40); EOSINOPHILS PERCENT AUTO 0.2 % (0.0-5.4); HEMATOCRIT 37.7 % (38.4-49.7); HEMOGLOBIN 12.9 g/dL (12.9-16.9); IMMATURE GRAN PERCENT AUTO 0.7 % (0.0-0.7); LYMPHOCYTES ABSOLUTE AUTO 1.42 K/uL (0.8-3.3); LYMPHOCYTES PERCENT AUTO 9.5 % (11.4-47.7); MEAN CORPUSCULAR HEMOGLOBIN 29.8 pg (31.6-35.5); MEAN CORPUSCULAR HGB CONC 34.2 g/dL (31.6-35.5); MEAN CORPUSCULAR VOLUME 87.1 fL (81.4-99.0); MONOCYTES PERCENT AUTO 10.1 % (3.3-12.6); NEUTROPHILS ABSOLUTE AUTO 11.77 K/uL (1.0-7.6); NEUTROPHILS PERCENT AUTO 79.1 % (40.0-78.1); PLATELET COUNT,PLT 318 K/uL (130-375); RED BLOOD CELL COUNT 4.33 M/uL (4.14-5.76); WHITE BLOOD CELL COUNT,WBC 14.9 K/uL (3.2-11.0)
[2023-02-10 20:25] LABS: A/G RATIO 0.5 (1.2-2.2); ALANINE AMINOTRANSFERASE,ALT 84 U/L (12-78); ALBUMIN 2.5 g/dL (3.4-5.0); ALKALINE PHOSPHATASE 102 U/L (46-116); ASPARTATE AMNIOTRANSFERASE,AST 60 U/L (15-37); BILIRUBIN TOTAL 0.9 mg/dL (0.2-1.0); BLOOD UREA NITROGEN,BUN 15 mg/dL (7-18); CALCIUM 8.3 mg/dL (8.5-10.1); CARBON DIOXIDE,CO2 29 mmol/L (21-32); CHLORIDE,CL 91 mmol/L (100-108); CREATININE 1.1 mg/dL (0.8-1.3); EST CRCL DRUG DOSING (CG) 76.06 mL/min; ESTIMATED GFR 77 mL/min (>60); POTASSIUM,K 3.5 mmol/L (3.6-5.2); PROTEIN TOTAL,TP 7.6 g/dL (6.4-8.2); SODIUM,NA 126 mmol/L (140-148)
[2023-02-10 20:27] LABS: ANION GAP 9.5 mmol/L (5.0-14.0)
[2023-02-10 20:28] LABS: GLUCOSE RANDOM 493 mg/dL (74-106)
[2023-02-10] MEDS ORDERED: Insulin Lispro 100 Units/ML 3 ML Vial SUBCUT ONE (20:36)
[2023-02-10] MEDS ORDERED: Glucagon,Human Recombinant 1 MG Vial IM PRN ×2 (20:36→21:56)
[2023-02-10] MEDS ORDERED: 50% Dextrose in Water 50 ML Syringe IVPUSH PRN ×2 (20:36→21:56)
[2023-02-10 20:47] LABS: APPEARANCE,URINE CLOUDY (CLEAR); BILIRUBIN,URINE NEGATIVE (NEGATIVE); COLOR,URINE YELLOW (YELLOW); GLUCOSE,URINE 500 mg/dL (NEGATIVE); KETONES,URINE NEGATIVE (NEGATIVE); LEUKOCYTE ESTERASE,URINE SMALL (NEGATIVE); NITRITE,URINE POSITIVE (NEGATIVE); OCCULT BLOOD,URINE TRACE-INTACT (NEGATIVE); PROTEIN,URINE NEGATIVE (NEGATIVE)
[2023-02-10 21:17] LABS: AMORPHOUS SEDIMENT,URINE NOT SEEN; BACTERIA,URINE MANY; EPITHELIAL CELLS,URINE FEW; MUCUS,URINE FEW; RBC,URINE 0-5 (0-5); WBC,URINE 40-50 (0-5)
[2023-02-10] MEDS ORDERED: Piperacillin/Tazobactam 3.375 GM in Sodium Chloride 0.9% 50 ML IV SCH (21:45)
[2023-02-10] MEDS ORDERED: Ondansetron 4 MG Tab.DIS PO PRN (21:45)
[2023-02-10] MEDS ORDERED: Bisacodyl 5 MG Tab PO PRN (21:45)
[2023-02-10] MEDS ORDERED: Naloxone 0.4 MG/ML SDV IVPUSH PRN (21:45)
[2023-02-10] MEDS ORDERED: LORazepam 2 MG/ML SDV IV PRN (21:45)
[2023-02-10] MEDS ORDERED: Docusate Sodium 100 MG Cap PO PRN (21:45)
[2023-02-10 22:47] LABS: HEMOGLOBIN A1C 10.4 % (4.5-6.2)
[2023-02-10] MEDS: Pantoprazole 40 MG Vial IV SCH (22:58)
[2023-02-10] MEDS ORDERED: Piperacillin/Tazobactam/Dext 3.375 GM in Premix Bag 1 BAG IV SCH (23:00)
[2023-02-10] MEDS ORDERED: Lactulose Soln 10 GM/15 ML 15 ML UD Cup ONE (23:11)
[2023-02-10] MEDS: Piperacillin/Tazobactam 3.375 GM in Sodium Chloride 0.9% 50 ML IV SCH (23:17)
[2023-02-10] MEDS: DULoxetine 30 MG Cap PO SCH (23:17)
[2023-02-10] MEDS: Sodium Chloride 0.9% 1,000 ML IV SCH (23:21)
[2023-02-10] MEDS: Insulin Glargine,Human Rec. Analog 100 Units/ML 3 ML Pen SUBCUT SCH (23:26)
[2023-02-10] MEDS: Melatonin 3 MG Tab PO SCH (23:27)
[2023-02-10] MEDS: Insulin Lispro 100 Unit/ML 3 ML KwikPen SUBCUT SCH (23:27)
[2023-02-11] MEDS: oxyCODONE 5 MG Tab PO PRN ×5 (00:42→23:58)
[2023-02-11] MEDS: Acetaminophen 325 MG Tab PO PRN ×3 (00:44→23:59)
[2023-02-11 04:16] LABS: BASOPHILS ABSOLUTE AUTO 0.08 K/uL (0.00-0.10); BASOPHILS PERCENT AUTO 0.5 % (0.1-1.3); EOSINOPHILS ABSOLUTE AUTO 0.13 K/uL (0.00-0.40); EOSINOPHILS PERCENT AUTO 0.9 % (0.0-5.4); HEMATOCRIT 36.4 % (38.4-49.7); HEMOGLOBIN 12.4 g/dL (12.9-16.9); IMMATURE GRAN ABSOLUTE AUTO 0.12 K/uL (0.00-0.23); IMMATURE GRAN PERCENT AUTO 0.8 % (0.0-0.7); LYMPHOCYTES ABSOLUTE AUTO 2.37 K/uL (0.8-3.3); LYMPHOCYTES PERCENT AUTO 15.8 % (11.4-47.7); MEAN CORPUSCULAR HEMOGLOBIN 29.7 pg (31.6-35.5); MEAN CORPUSCULAR HGB CONC 34.1 g/dL (31.6-35.5); MEAN CORPUSCULAR VOLUME 87.1 fL (81.4-99.0); MONOCYTES ABSOLUTE AUTO 1.59 K/uL (0.20-0.90); MONOCYTES PERCENT AUTO 10.6 % (3.3-12.6); NEUTROPHILS ABSOLUTE AUTO 10.75 K/uL (1.0-7.6); NEUTROPHILS PERCENT AUTO 71.4 % (40.0-78.1); PLATELET COUNT,PLT 295 K/uL (130-375); RED BLOOD CELL COUNT 4.18 M/uL (4.14-5.76)
[2023-02-11 04:55] LABS: C-REACTIVE PROTEIN 19.05 mg/dL (0.0-0.3); CALCIUM 8.5 mg/dL (8.5-10.1); EST CRCL DRUG DOSING (CG) 83.67 mL/min; POTASSIUM,K 3.5 mmol/L (3.6-5.2)
[2023-02-11 05:10] LABS: ANION GAP 6.5 mmol/L (5.0-14.0)
[2023-02-11] MEDS: Piperacillin/Tazobactam 3.375 GM in Sodium Chloride 0.9% 50 ML IV SCH (05:27)
[2023-02-11] MEDS ORDERED: Insulin Lispro 100 Unit/ML 3 ML KwikPen SUBCUT SCH (07:00)
[2023-02-11] MEDS: Lactulose Soln 10 GM/15 ML 15 ML UD Cup PO SCH ×2 (08:09→21:26)
[2023-02-11] MEDS: DULoxetine 30 MG Cap PO SCH ×2 (08:09→21:26)
[2023-02-11] MEDS: Pregabalin 50 MG Cap PO SCH ×3 (08:09→21:26)
[2023-02-11] MEDS: Sodium Chloride 0.9% 1,000 ML IV SCH ×2 (08:12→21:25)
[2023-02-11] MEDS: Insulin Lispro 100 Unit/ML 3 ML KwikPen SUBCUT SCH ×4 (08:53→21:26)
[2023-02-11] MEDS: Pantoprazole 40 MG Vial IV SCH (09:55)
[2023-02-11] MEDS: Meropenem 500 MG in Sodium Chloride 0.9% 50 ML IV SCH ×3 (09:57→21:26)
[2023-02-11] MEDS: Linezolid 600 MG in Premix Bag 1 BAG IV SCH ×2 (11:54→23:52)
[2023-02-11] MEDS: Melatonin 3 MG Tab PO SCH (21:26)
[2023-02-11] MEDS: Insulin Glargine,Human Rec. Analog 100 Units/ML 3 ML Pen SUBCUT SCH (21:27)
[2023-02-12] MEDS: Meropenem 500 MG in Sodium Chloride 0.9% 50 ML IV SCH ×4 (04:20→21:11)
[2023-02-12 04:24] LABS: BASOPHILS ABSOLUTE AUTO 0.07 K/uL (0.00-0.10); BASOPHILS PERCENT AUTO 0.4 % (0.1-1.3); EOSINOPHILS ABSOLUTE AUTO 0.11 K/uL (0.00-0.40); EOSINOPHILS PERCENT AUTO 0.6 % (0.0-5.4); HEMATOCRIT 36.2 % (38.4-49.7); HEMOGLOBIN 12.2 g/dL (12.9-16.9); IMMATURE GRAN ABSOLUTE AUTO 0.15 K/uL (0.00-0.23); IMMATURE GRAN PERCENT AUTO 0.8 % (0.0-0.7); LYMPHOCYTES ABSOLUTE AUTO 2.02 K/uL (0.8-3.3); LYMPHOCYTES PERCENT AUTO 11.4 % (11.4-47.7); MEAN CORPUSCULAR HEMOGLOBIN 29.7 pg (31.6-35.5); MEAN CORPUSCULAR HGB CONC 33.7 g/dL (31.6-35.5); MEAN CORPUSCULAR VOLUME 88.1 fL (81.4-99.0); MONOCYTES ABSOLUTE AUTO 1.55 K/uL (0.20-0.90); MONOCYTES PERCENT AUTO 8.7 % (3.3-12.6); NEUTROPHILS ABSOLUTE AUTO 13.83 K/uL (1.0-7.6); NEUTROPHILS PERCENT AUTO 78.1 % (40.0-78.1); PLATELET COUNT,PLT 337 K/uL (130-375); RED BLOOD CELL COUNT 4.11 M/uL (4.14-5.76); WHITE BLOOD CELL COUNT,WBC 17.7 K/uL (3.2-11.0)
[2023-02-12 04:49] LABS: A/G RATIO 0.4 (1.2-2.2); ALANINE AMINOTRANSFERASE,ALT 61 U/L (12-78); ALBUMIN 2.1 g/dL (3.4-5.0); ALKALINE PHOSPHATASE 92 U/L (46-116); ASPARTATE AMNIOTRANSFERASE,AST 30 U/L (15-37); BILIRUBIN TOTAL 0.5 mg/dL (0.2-1.0); BLOOD UREA NITROGEN,BUN 13 mg/dL (7-18); CALCIUM 8.3 mg/dL (8.5-10.1); CARBON DIOXIDE,CO2 29 mmol/L (21-32); CHLORIDE,CL 99 mmol/L (100-108); CREATININE 0.9 mg/dL (0.8-1.3); EST CRCL DRUG DOSING (CG) 92.96 mL/min; ESTIMATED GFR 98 mL/min (>60); GLUCOSE RANDOM 133 mg/dL (74-106); PHOSPHORUS 2.3 mg/dL (2.5-4.9); POTASSIUM,K 3.9 mmol/L (3.6-5.2); PROTEIN TOTAL,TP 7.2 g/dL (6.4-8.2); SODIUM,NA 133 mmol/L (140-148)
[2023-02-12 05:03] LABS: ANION GAP 8.9 mmol/L (5.0-14.0)
[2023-02-12] MEDS: Insulin Lispro 100 Unit/ML 3 ML KwikPen SUBCUT SCH ×4 (08:13→21:08)
[2023-02-12] MEDS: oxyCODONE 5 MG Tab PO PRN ×2 (08:48→14:56)
[2023-02-12] MEDS: Pregabalin 50 MG Cap PO SCH ×3 (08:50→21:10)
[2023-02-12] MEDS: Lactulose Soln 10 GM/15 ML 15 ML UD Cup PO SCH ×2 (08:50→21:10)
[2023-02-12] MEDS: Acetaminophen 325 MG Tab PO PRN (08:50)
[2023-02-12] MEDS: DULoxetine 30 MG Cap PO SCH ×2 (08:51→21:10)
[2023-02-12] MEDS: Pantoprazole 40 MG Tab.CR PO SCH (08:51)
[2023-02-12] MEDS: Linezolid 600 MG in Premix Bag 1 BAG IV SCH ×2 (12:41→23:30)
[2023-02-12] MEDS ORDERED: Insulin Glargine,Human Rec. Analog 100 Units/ML 3 ML Pen SUBCUT SCH (21:00)
[2023-02-12] MEDS: Melatonin 3 MG Tab PO SCH (21:10)
[2023-02-13] MEDS: Meropenem 500 MG in Sodium Chloride 0.9% 50 ML IV SCH ×4 (03:12→21:25)
[2023-02-13 04:54] LABS: HEMATOCRIT 34.5 % (38.4-49.7); HEMOGLOBIN 11.7 g/dL (12.9-16.9); MEAN CORPUSCULAR HEMOGLOBIN 29.7 pg (31.6-35.5); MEAN CORPUSCULAR HGB CONC 33.9 g/dL (31.6-35.5); MEAN CORPUSCULAR VOLUME 87.6 fL (81.4-99.0); RED BLOOD CELL COUNT 3.94 M/uL (4.14-5.76); WHITE BLOOD CELL COUNT,WBC 15.6 K/uL (3.2-11.0)
[2023-02-13 05:09] LABS: CALCIUM 8.3 mg/dL (8.5-10.1); CREATININE 0.8 mg/dL (0.8-1.3); EST CRCL DRUG DOSING (CG) 104.58 mL/min; POTASSIUM,K 3.6 mmol/L (3.6-5.2)
[2023-02-13 05:10] LABS: ANION GAP 9.6 mmol/L (5.0-14.0)
[2023-02-13] MEDS: oxyCODONE 5 MG Tab PO PRN ×2 (07:05→21:23)
[2023-02-13] MEDS: Acetaminophen 325 MG Tab PO PRN ×2 (07:06→23:39)
[2023-02-13] MEDS: Insulin Lispro 100 Unit/ML 3 ML KwikPen SUBCUT SCH ×4 (07:23→21:26)
[2023-02-13] MEDS: Pantoprazole 40 MG Tab.CR PO SCH (08:05)
[2023-02-13] MEDS: Lactulose Soln 10 GM/15 ML 15 ML UD Cup PO SCH ×2 (08:05→21:24)
[2023-02-13] MEDS: DULoxetine 30 MG Cap PO SCH ×2 (08:05→21:24)
[2023-02-13] MEDS: Pregabalin 50 MG Cap PO SCH ×3 (08:05→21:24)
[2023-02-13] MEDS ORDERED: Potassium Chloride 20 MEQ Tab.ER PO ONE (08:45)
[2023-02-13] MEDS ORDERED: Gadoteridol 279.3 MG/ML 20 ML SDV IV SCH (10:00)
[2023-02-13] MEDS: Linezolid 600 MG in Premix Bag 1 BAG IV SCH ×2 (12:05→23:07)
[2023-02-13] MEDS ORDERED: 50% Dextrose in Water 50 ML Syringe IV PRN (13:01)
[2023-02-13] MEDS ORDERED: Glucose Gel 15 GM in 37.5 GM Tube PO PRN (13:01)
[2023-02-13] MEDS ORDERED: Insulin Lispro 100 Unit/ML 3 ML KwikPen SUBCUT SCH (17:00)
[2023-02-13] MEDS: Melatonin 3 MG Tab PO SCH (21:25)
[2023-02-13] MEDS: Insulin Glargine,Human Rec. Analog 100 Units/ML 3 ML Pen SUBCUT SCH (21:27)
[2023-02-14] MEDS: Meropenem 500 MG in Sodium Chloride 0.9% 50 ML IV SCH ×4 (04:28→21:15)
[2023-02-14 04:53] LABS: BASOPHILS ABSOLUTE AUTO 0.06 K/uL (0.00-0.10); BASOPHILS PERCENT AUTO 0.4 % (0.1-1.3); EOSINOPHILS ABSOLUTE AUTO 0.25 K/uL (0.00-0.40); EOSINOPHILS PERCENT AUTO 1.8 % (0.0-5.4); HEMATOCRIT 34.8 % (38.4-49.7); HEMOGLOBIN 11.8 g/dL (12.9-16.9); IMMATURE GRAN ABSOLUTE AUTO 0.07 K/uL (0.00-0.23); IMMATURE GRAN PERCENT AUTO 0.5 % (0.0-0.7); LYMPHOCYTES ABSOLUTE AUTO 2.01 K/uL (0.8-3.3); LYMPHOCYTES PERCENT AUTO 14.9 % (11.4-47.7); MEAN CORPUSCULAR HEMOGLOBIN 29.8 pg (31.6-35.5); MEAN CORPUSCULAR HGB CONC 33.9 g/dL (31.6-35.5); MEAN CORPUSCULAR VOLUME 87.9 fL (81.4-99.0); MONOCYTES ABSOLUTE AUTO 1.07 K/uL (0.20-0.90); MONOCYTES PERCENT AUTO 7.9 % (3.3-12.6); NEUTROPHILS ABSOLUTE AUTO 10.06 K/uL (1.0-7.6); NEUTROPHILS PERCENT AUTO 74.5 % (40.0-78.1); PLATELET COUNT,PLT 372 K/uL (130-375); RED BLOOD CELL COUNT 3.96 M/uL (4.14-5.76); WHITE BLOOD CELL COUNT,WBC 13.5 K/uL (3.2-11.0)
[2023-02-14 05:17] LABS: CALCIUM 8.3 mg/dL (8.5-10.1); CREATININE 0.8 mg/dL (0.8-1.3); EST CRCL DRUG DOSING (CG) 104.58 mL/min; POTASSIUM,K 3.8 mmol/L (3.6-5.2)
[2023-02-14 05:20] LABS: ANION GAP 10.8 mmol/L (5.0-14.0)
[2023-02-14] MEDS: Insulin Lispro 100 Unit/ML 3 ML KwikPen SUBCUT SCH ×4 (07:50→21:13)
[2023-02-14] MEDS: Pantoprazole 40 MG Tab.CR PO SCH (09:31)
[2023-02-14] MEDS: DULoxetine 30 MG Cap PO SCH ×2 (09:31→20:35)
[2023-02-14] MEDS: Lactulose Soln 10 GM/15 ML 15 ML UD Cup PO SCH ×2 (09:31→20:35)
[2023-02-14] MEDS: Pregabalin 50 MG Cap PO SCH ×3 (09:37→20:38)
[2023-02-14] MEDS: Linezolid 600 MG in Premix Bag 1 BAG IV SCH ×2 (12:04→23:15)
[2023-02-14] MEDS: Acetaminophen 325 MG Tab PO PRN ×2 (13:06→20:34)
[2023-02-14] MEDS: oxyCODONE 5 MG Tab PO PRN ×2 (13:06→20:35)
[2023-02-14] MEDS: Sodium Chloride 0.9% 1,000 ML IV SCH (16:11)
[2023-02-14] MEDS: Insulin Glargine,Human Rec. Analog 100 Units/ML 3 ML Pen SUBCUT SCH (21:14)
[2023-02-14] MEDS: Melatonin 3 MG Tab PO SCH (21:14)
[2023-02-15] MEDS: Meropenem 500 MG in Sodium Chloride 0.9% 50 ML IV SCH ×4 (03:20→21:40)
[2023-02-15] MEDS: Lactulose Soln 10 GM/15 ML 15 ML UD Cup PO SCH ×2 (08:35→20:14)
[2023-02-15] MEDS: DULoxetine 30 MG Cap PO SCH ×2 (08:35→20:14)
[2023-02-15] MEDS: Pantoprazole 40 MG Tab.CR PO SCH (08:35)
[2023-02-15] MEDS: Insulin Lispro 100 Unit/ML 3 ML KwikPen SUBCUT SCH ×4 (08:35→21:30)
[2023-02-15] MEDS: Pregabalin 50 MG Cap PO SCH ×3 (08:39→20:16)
[2023-02-15] MEDS: Linezolid 600 MG in Premix Bag 1 BAG IV SCH (11:45)
[2023-02-15] MEDS: oxyCODONE 5 MG Tab PO PRN ×2 (11:51→21:36)
[2023-02-15] MEDS: Melatonin 3 MG Tab PO SCH (20:14)
[2023-02-15] MEDS: Insulin Glargine,Human Rec. Analog 100 Units/ML 3 ML Pen SUBCUT SCH (21:30)
[2023-02-16] MEDS: Morphine 2 MG/ML SYRINGE IVPUSH PRN (00:27)
[2023-02-16] MEDS: Linezolid 600 MG in Premix Bag 1 BAG IV SCH ×3 (00:27→23:19)
[2023-02-16 04:16] LABS: HEMATOCRIT 35.7 % (38.4-49.7); HEMOGLOBIN 12.2 g/dL (12.9-16.9); MEAN CORPUSCULAR HGB CONC 34.2 g/dL (31.6-35.5); MEAN CORPUSCULAR VOLUME 87.7 fL (81.4-99.0); RED BLOOD CELL COUNT 4.07 M/uL (4.14-5.76); WHITE BLOOD CELL COUNT,WBC 10.5 K/uL (3.2-11.0)
[2023-02-16 04:39] LABS: ALANINE AMINOTRANSFERASE,ALT 123 U/L (12-78); ALBUMIN 1.9 g/dL (3.4-5.0); ALKALINE PHOSPHATASE 117 U/L (46-116); ASPARTATE AMNIOTRANSFERASE,AST 68 U/L (15-37); BILIRUBIN TOTAL 0.4 mg/dL (0.2-1.0); BLOOD UREA NITROGEN,BUN 15 mg/dL (7-18); CALCIUM 8.6 mg/dL (8.5-10.1); CARBON DIOXIDE,CO2 30 mmol/L (21-32); CHLORIDE,CL 100 mmol/L (100-108); CREATININE 0.8 mg/dL (0.8-1.3); EST CRCL DRUG DOSING (CG) 104.16 mL/min; ESTIMATED GFR 101 mL/min (>60); GLUCOSE RANDOM 156 mg/dL (74-106); PHOSPHORUS 3.1 mg/dL (2.5-4.9); POTASSIUM,K 4.4 mmol/L (3.6-5.2); PROTEIN TOTAL,TP 7.4 g/dL (6.4-8.2); SODIUM,NA 134 mmol/L (140-148)
[2023-02-16 04:40] LABS: A/G RATIO 0.4 (1.2-2.2); ANION GAP 8.4 mmol/L (5.0-14.0)
[2023-02-16] MEDS: Meropenem 500 MG in Sodium Chloride 0.9% 50 ML IV SCH ×4 (04:57→22:23)
[2023-02-16] MEDS: Sodium Chloride 0.9% 1,000 ML IV SCH (04:58)
[2023-02-16] MEDS: Insulin Lispro 100 Unit/ML 3 ML KwikPen SUBCUT SCH ×4 (08:18→22:09)
[2023-02-16] MEDS: Pregabalin 50 MG Cap PO SCH ×3 (08:27→20:34)
[2023-02-16] MEDS: Lactulose Soln 10 GM/15 ML 15 ML UD Cup PO SCH ×2 (08:27→19:59)
[2023-02-16] MEDS: DULoxetine 30 MG Cap PO SCH ×2 (08:27→20:00)
[2023-02-16] MEDS: Pantoprazole 40 MG Tab.CR PO SCH (08:27)
[2023-02-16] MEDS ORDERED: Bupivacaine 0.5% 50 ML MDV ONE (08:46)
[2023-02-16] MEDS ORDERED: Lidocaine 1% with EPINEPHrine 1:100,000 50 ML MDV ONE (08:46)
[2023-02-16] MEDS ORDERED: Meropenem 500 MG SDV ONE (08:46)
[2023-02-16] MEDS ORDERED: Bupivacaine 0.5% 30 ML SDV ONE (09:27)
[2023-02-16] MEDS ORDERED: Propofol 200 MG/20 ML SDV ONE (09:27)
[2023-02-16] MEDS ORDERED: Rocuronium 50 MG/5 ML Vial ONE (09:27)
[2023-02-16] MEDS ORDERED: Ondansetron 4 MG/2 ML SDV ONE (09:27)
[2023-02-16] MEDS ORDERED: Dexamethasone 4 MG/ML SDV ONE (09:27)
[2023-02-16] MEDS ORDERED: Glycopyrrolate 0.2 MG/ML 5 ML MDV ONE (09:27)
[2023-02-16] MEDS ORDERED: Neostigmine Methylsulfate 1 MG/ML 5 ML Syringe ONE (09:27)
[2023-02-16] MEDS ORDERED: fentaNYL 250 MCG/5 ML SDV ONE (09:29)
[2023-02-16] MEDS ORDERED: Hydrogen Peroxide 3% Top Soln 240 ML Bottle ONE (13:55)
[2023-02-16] MEDS ORDERED: fentaNYL 100 MCG/2 ML SDV ONE (13:55)
[2023-02-16] MEDS: Lactated Ringers 1,000 ML IV SCH (15:43)
[2023-02-16] MEDS: Melatonin 3 MG Tab PO SCH (20:00)
[2023-02-16] MEDS: Insulin Glargine,Human Rec. Analog 100 Units/ML 3 ML Pen SUBCUT SCH (22:09)
[2023-02-16] MEDS: oxyCODONE 5 MG Tab PO PRN (23:24)
[2023-02-17] MEDS: Meropenem 500 MG in Sodium Chloride 0.9% 50 ML IV SCH ×4 (03:51→21:15)
[2023-02-17] MEDS: oxyCODONE 5 MG Tab PO PRN ×5 (03:55→23:56)
[2023-02-17 04:15] LABS: BASOPHILS ABSOLUTE AUTO 0.04 K/uL (0.00-0.10); BASOPHILS PERCENT AUTO 0.3 % (0.1-1.3); EOSINOPHILS ABSOLUTE AUTO 0.09 K/uL (0.00-0.40); EOSINOPHILS PERCENT AUTO 0.7 % (0.0-5.4); HEMATOCRIT 36.3 % (38.4-49.7); IMMATURE GRAN ABSOLUTE AUTO 0.06 K/uL (0.00-0.23); IMMATURE GRAN PERCENT AUTO 0.5 % (0.0-0.7); LYMPHOCYTES ABSOLUTE AUTO 2.84 K/uL (0.8-3.3); LYMPHOCYTES PERCENT AUTO 22.1 % (11.4-47.7); MEAN CORPUSCULAR HEMOGLOBIN 29.7 pg (31.6-35.5); MEAN CORPUSCULAR HGB CONC 33.1 g/dL (31.6-35.5); MEAN CORPUSCULAR VOLUME 89.9 fL (81.4-99.0); MONOCYTES ABSOLUTE AUTO 0.97 K/uL (0.20-0.90); MONOCYTES PERCENT AUTO 7.5 % (3.3-12.6); NEUTROPHILS ABSOLUTE AUTO 8.87 K/uL (1.0-7.6); NEUTROPHILS PERCENT AUTO 68.9 % (40.0-78.1); PLATELET COUNT,PLT 390 K/uL (130-375); RED BLOOD CELL COUNT 4.04 M/uL (4.14-5.76); WHITE BLOOD CELL COUNT,WBC 12.9 K/uL (3.2-11.0)
[2023-02-17 04:47] LABS: A/G RATIO 0.4 (1.2-2.2); ALANINE AMINOTRANSFERASE,ALT 104 U/L (12-78); ALBUMIN 1.9 g/dL (3.4-5.0); ALKALINE PHOSPHATASE 109 U/L (46-116); ASPARTATE AMNIOTRANSFERASE,AST 59 U/L (15-37); BILIRUBIN TOTAL 0.4 mg/dL (0.2-1.0); BLOOD UREA NITROGEN,BUN 17 mg/dL (7-18); CALCIUM 8.5 mg/dL (8.5-10.1); CARBON DIOXIDE,CO2 33 mmol/L (21-32); CHLORIDE,CL 100 mmol/L (100-108); CREATININE 0.9 mg/dL (0.8-1.3); EST CRCL DRUG DOSING (CG) 92.58 mL/min; ESTIMATED GFR 98 mL/min (>60); GLUCOSE RANDOM 176 mg/dL (74-106); MAGNESIUM 2.1 mg/dL (1.8-2.4); PHOSPHORUS 3.1 mg/dL (2.5-4.9); POTASSIUM,K 4.5 mmol/L (3.6-5.2); PRO B-TYPE NATRIUR PEPT,BNPPRO 167 pg/mL (5-125); PROTEIN TOTAL,TP 7.1 g/dL (6.4-8.2); SODIUM,NA 135 mmol/L (140-148)
[2023-02-17 05:46] LABS: ANION GAP 6.5 mmol/L (5.0-14.0)
[2023-02-17] MEDS: Lactated Ringers 1,000 ML IV SCH ×2 (05:46→21:13)
[2023-02-17] MEDS: Insulin Lispro 100 Unit/ML 3 ML KwikPen SUBCUT SCH ×4 (07:29→21:19)
[2023-02-17] MEDS: Acetaminophen 325 MG Tab PO PRN ×2 (07:29→17:21)
[2023-02-17] MEDS: Pregabalin 50 MG Cap PO SCH ×3 (08:09→21:20)
[2023-02-17] MEDS: DULoxetine 30 MG Cap PO SCH ×2 (09:13→21:16)
[2023-02-17] MEDS: Pantoprazole 40 MG Tab.CR PO SCH (09:13)
[2023-02-17] MEDS: Lactulose Soln 10 GM/15 ML 15 ML UD Cup PO SCH ×2 (09:13→21:16)
[2023-02-17] MEDS: Linezolid 600 MG in Premix Bag 1 BAG IV SCH ×2 (11:21→23:57)
[2023-02-17] MEDS: Albumin Human 25 GM in Premix Bag 1 BAG IV SCH (13:19)
[2023-02-17] MEDS: Melatonin 3 MG Tab PO SCH (21:17)
[2023-02-17] MEDS: Insulin Glargine,Human Rec. Analog 100 Units/ML 3 ML Pen SUBCUT SCH (21:20)
[2023-02-18] MEDS: Meropenem 500 MG in Sodium Chloride 0.9% 50 ML IV SCH ×4 (04:07→21:36)
[2023-02-18 04:54] LABS: HEMATOCRIT 34.6 % (38.4-49.7); HEMOGLOBIN 11.6 g/dL (12.9-16.9); MEAN CORPUSCULAR HEMOGLOBIN 29.6 pg (31.6-35.5); MEAN CORPUSCULAR HGB CONC 33.5 g/dL (31.6-35.5); MEAN CORPUSCULAR VOLUME 88.3 fL (81.4-99.0); RED BLOOD CELL COUNT 3.92 M/uL (4.14-5.76); WHITE BLOOD CELL COUNT,WBC 10.3 K/uL (3.2-11.0)
[2023-02-18 04:55] LABS: A/G RATIO 0.4 (1.2-2.2); ALANINE AMINOTRANSFERASE,ALT 84 U/L (12-78); ALBUMIN 2.2 g/dL (3.4-5.0); ALKALINE PHOSPHATASE 103 U/L (46-116); ASPARTATE AMNIOTRANSFERASE,AST 35 U/L (15-37); BILIRUBIN TOTAL 0.5 mg/dL (0.2-1.0); BLOOD UREA NITROGEN,BUN 13 mg/dL (7-18); CALCIUM 8.5 mg/dL (8.5-10.1); CARBON DIOXIDE,CO2 32 mmol/L (21-32); CHLORIDE,CL 99 mmol/L (100-108); CREATININE 0.8 mg/dL (0.8-1.3); EST CRCL DRUG DOSING (CG) 104.16 mL/min; ESTIMATED GFR 101 mL/min (>60); GLUCOSE RANDOM 148 mg/dL (74-106); MAGNESIUM 1.9 mg/dL (1.8-2.4); PHOSPHORUS 2.7 mg/dL (2.5-4.9); POTASSIUM,K 4.2 mmol/L (3.6-5.2); PROTEIN TOTAL,TP 7.2 g/dL (6.4-8.2); SODIUM,NA 135 mmol/L (140-148)
[2023-02-18 05:12] LABS: ANION GAP 8.2 mmol/L (5.0-14.0)
[2023-02-18] MEDS: oxyCODONE 5 MG Tab PO PRN ×2 (06:00→13:12)
[2023-02-18] MEDS: Insulin Lispro 100 Unit/ML 3 ML KwikPen SUBCUT SCH ×4 (09:07→21:28)
[2023-02-18] MEDS ORDERED: Lactated Ringers 1,000 ML IV SCH (09:15)
[2023-02-18] MEDS: DULoxetine 30 MG Cap PO SCH ×2 (09:17→21:30)
[2023-02-18] MEDS: Acetaminophen 325 MG Tab PO PRN ×2 (09:17→18:04)
[2023-02-18] MEDS: Lactulose Soln 10 GM/15 ML 15 ML UD Cup PO SCH ×2 (09:17→21:30)
[2023-02-18] MEDS: Pregabalin 50 MG Cap PO SCH ×3 (09:17→21:33)
[2023-02-18] MEDS: Pantoprazole 40 MG Tab.CR PO SCH (09:17)
[2023-02-18] MEDS: Linezolid 600 MG in Premix Bag 1 BAG IV SCH ×2 (11:31→23:37)
[2023-02-18] MEDS: Albumin Human 25 GM in Premix Bag 1 BAG IV SCH (13:02)
[2023-02-18] MEDS: Insulin Glargine,Human Rec. Analog 100 Units/ML 3 ML Pen SUBCUT SCH (21:29)
[2023-02-18] MEDS: Melatonin 3 MG Tab PO SCH (21:30)
[2023-02-19] MEDS: Meropenem 500 MG in Sodium Chloride 0.9% 50 ML IV SCH (03:53)
[2023-02-19] MEDS: oxyCODONE 5 MG Tab PO PRN ×2 (06:23→21:54)
[2023-02-19] MEDS: DULoxetine 30 MG Cap PO SCH ×2 (08:49→21:50)
[2023-02-19] MEDS: Lactulose Soln 10 GM/15 ML 15 ML UD Cup PO SCH ×2 (08:49→21:49)
[2023-02-19] MEDS: Insulin Lispro 100 Unit/ML 3 ML KwikPen SUBCUT SCH ×4 (08:49→21:48)
[2023-02-19] MEDS: Pregabalin 50 MG Cap PO SCH ×3 (08:49→21:49)
[2023-02-19] MEDS: Pantoprazole 40 MG Tab.CR PO SCH (08:51)
[2023-02-19] MEDS: Levofloxacin/Dextrose 5%-Water 500 MG in Premix Bag 1 BAG IV SCH (10:12)
[2023-02-19] MEDS: Doxycycline 100 MG in Sodium Chloride 0.9% 100 ML IV SCH ×2 (11:35→23:24)
[2023-02-19] MEDS: Albumin Human 25 GM in Premix Bag 1 BAG IV SCH (13:31)
[2023-02-19] MEDS: Acetaminophen 325 MG Tab PO PRN (13:36)
[2023-02-19] MEDS: Insulin Glargine,Human Rec. Analog 100 Units/ML 3 ML Pen SUBCUT SCH (21:48)
[2023-02-19] MEDS: Melatonin 3 MG Tab PO SCH (21:49)
[2023-02-20] MEDS: DULoxetine 30 MG Cap PO SCH ×2 (08:27→21:18)
[2023-02-20] MEDS: Pregabalin 50 MG Cap PO SCH ×3 (08:27→21:22)
[2023-02-20] MEDS: Lactulose Soln 10 GM/15 ML 15 ML UD Cup PO SCH ×2 (08:28→21:17)
[2023-02-20] MEDS: Insulin Lispro 100 Unit/ML 3 ML KwikPen SUBCUT SCH ×4 (08:28→21:16)
[2023-02-20] MEDS: Pantoprazole 40 MG Tab.CR PO SCH (08:28)
[2023-02-20] MEDS: Levofloxacin/Dextrose 5%-Water 500 MG in Premix Bag 1 BAG IV SCH (11:05)
[2023-02-20] MEDS: Doxycycline 100 MG in Sodium Chloride 0.9% 100 ML IV SCH (12:17)
[2023-02-20] MEDS: Linezolid 600 MG in Premix Bag 1 BAG IV SCH (14:26)
[2023-02-20] MEDS: Insulin Glargine,Human Rec. Analog 100 Units/ML 3 ML Pen SUBCUT SCH (21:17)
[2023-02-20] MEDS: Melatonin 3 MG Tab PO SCH (21:18)
[2023-02-20] MEDS: oxyCODONE 5 MG Tab PO PRN (23:12)
[2023-02-21] MEDS: Linezolid 600 MG in Premix Bag 1 BAG IV SCH ×2 (03:34→13:23)
[2023-02-21 06:00] LABS: HEMATOCRIT 35.6 % (38.4-49.7); MEAN CORPUSCULAR HEMOGLOBIN 29.6 pg (31.6-35.5); MEAN CORPUSCULAR HGB CONC 33.7 g/dL (31.6-35.5); MEAN CORPUSCULAR VOLUME 87.7 fL (81.4-99.0); RED BLOOD CELL COUNT 4.06 M/uL (4.14-5.76); WHITE BLOOD CELL COUNT,WBC 7.5 K/uL (3.2-11.0)
[2023-02-21 06:21] LABS: C-REACTIVE PROTEIN 2.81 mg/dL (0.0-0.3); CREATININE 0.8 mg/dL (0.8-1.3); EST CRCL DRUG DOSING (CG) 104.16 mL/min; POTASSIUM,K 4.2 mmol/L (3.6-5.2)
[2023-02-21 06:30] LABS: ANION GAP 7.2 mmol/L (5.0-14.0)
[2023-02-21] MEDS: Pantoprazole 40 MG Tab.CR PO SCH (08:19)
[2023-02-21] MEDS: Pregabalin 50 MG Cap PO SCH ×3 (08:19→21:04)
[2023-02-21] MEDS: Lactulose Soln 10 GM/15 ML 15 ML UD Cup PO SCH ×2 (08:19→21:00)
[2023-02-21] MEDS: Insulin Lispro 100 Unit/ML 3 ML KwikPen SUBCUT SCH ×4 (08:19→21:01)
[2023-02-21] MEDS: DULoxetine 30 MG Cap PO SCH ×2 (08:19→21:00)
[2023-02-21] MEDS: Melatonin 3 MG Tab PO SCH (21:00)
[2023-02-21] MEDS: Insulin Glargine,Human Rec. Analog 100 Units/ML 3 ML Pen SUBCUT SCH (21:01)
[2023-02-21] MEDS: Acetaminophen 325 MG Tab PO PRN (23:27)
[2023-02-22] MEDS: Linezolid 600 MG in Premix Bag 1 BAG IV SCH ×2 (01:45→14:27)
[2023-02-22] MEDS: Pregabalin 50 MG Cap PO SCH ×3 (08:01→21:07)
[2023-02-22] MEDS: DULoxetine 30 MG Cap PO SCH ×2 (08:02→21:03)
[2023-02-22] MEDS: Lactulose Soln 10 GM/15 ML 15 ML UD Cup PO SCH ×2 (08:02→21:02)
[2023-02-22] MEDS: Pantoprazole 40 MG Tab.CR PO SCH (08:02)
[2023-02-22] MEDS: Insulin Lispro 100 Unit/ML 3 ML KwikPen SUBCUT SCH ×4 (08:02→21:02)
[2023-02-22] MEDS: Insulin Glargine,Human Rec. Analog 100 Units/ML 3 ML Pen SUBCUT SCH (21:03)
[2023-02-22] MEDS: Melatonin 3 MG Tab PO SCH (21:04)
[2023-02-23] MEDS: Acetaminophen 325 MG Tab PO PRN ×2 (00:25→18:07)
[2023-02-23] MEDS: Linezolid 600 MG in Premix Bag 1 BAG IV SCH ×2 (01:50→13:03)
[2023-02-23] MEDS: oxyCODONE 5 MG Tab PO PRN ×3 (03:18→21:35)
[2023-02-23] MEDS: Insulin Lispro 100 Unit/ML 3 ML KwikPen SUBCUT SCH ×4 (07:54→21:34)
[2023-02-23] MEDS: Lactulose Soln 10 GM/15 ML 15 ML UD Cup PO SCH ×2 (08:00→21:34)
[2023-02-23] MEDS: Pantoprazole 40 MG Tab.CR PO SCH (08:00)
[2023-02-23] MEDS: Pregabalin 50 MG Cap PO SCH ×3 (08:00→21:33)
[2023-02-23] MEDS: DULoxetine 30 MG Cap PO SCH ×2 (08:00→21:33)
[2023-02-23] MEDS: Melatonin 3 MG Tab PO SCH (21:33)
[2023-02-23] MEDS: Insulin Glargine,Human Rec. Analog 100 Units/ML 3 ML Pen SUBCUT SCH (21:33)
[2023-02-24 05:39] LABS: HEMATOCRIT 34.4 % (38.4-49.7); HEMOGLOBIN 11.7 g/dL (12.9-16.9); MEAN CORPUSCULAR HEMOGLOBIN 29.9 pg (31.6-35.5); RED BLOOD CELL COUNT 3.91 M/uL (4.14-5.76); WHITE BLOOD CELL COUNT,WBC 9.3 K/uL (3.2-11.0)
[2023-02-24 06:05] LABS: C-REACTIVE PROTEIN 1.15 mg/dL (0.0-0.3); CALCIUM 8.9 mg/dL (8.5-10.1); CREATININE 0.8 mg/dL (0.8-1.3); EST CRCL DRUG DOSING (CG) 104.16 mL/min
[2023-02-24] MEDS: Insulin Lispro 100 Unit/ML 3 ML KwikPen SUBCUT SCH ×4 (08:03→21:01)
[2023-02-24] MEDS: DULoxetine 30 MG Cap PO SCH ×2 (08:45→21:02)
[2023-02-24] MEDS: Pantoprazole 40 MG Tab.CR PO SCH (08:46)
[2023-02-24] MEDS: Lactulose Soln 10 GM/15 ML 15 ML UD Cup PO SCH ×2 (08:46→21:02)
[2023-02-24] MEDS: Acetaminophen 325 MG Tab PO PRN ×3 (09:11→22:17)
[2023-02-24] MEDS: Pregabalin 50 MG Cap PO SCH ×3 (09:11→21:09)
[2023-02-24] MEDS: oxyCODONE 5 MG Tab PO PRN ×2 (18:29→22:17)
[2023-02-24] MEDS: Morphine 2 MG/ML SYRINGE IVPUSH PRN ×2 (19:26→21:43)
[2023-02-24] MEDS: Insulin Glargine,Human Rec. Analog 100 Units/ML 3 ML Pen SUBCUT SCH (21:03)
[2023-02-24] MEDS: Melatonin 3 MG Tab PO SCH (21:09)
[2023-02-25] MEDS: Insulin Lispro 100 Unit/ML 3 ML KwikPen SUBCUT SCH ×4 (07:41→21:03)
[2023-02-25] MEDS: Pregabalin 50 MG Cap PO SCH ×3 (08:56→20:47)
[2023-02-25] MEDS: DULoxetine 30 MG Cap PO SCH ×2 (08:56→20:45)
[2023-02-25] MEDS: Lactulose Soln 10 GM/15 ML 15 ML UD Cup PO SCH ×2 (08:56→20:44)
[2023-02-25] MEDS: Pantoprazole 40 MG Tab.CR PO SCH (08:56)
[2023-02-25] MEDS: oxyCODONE 5 MG Tab PO PRN ×3 (10:38→20:46)
[2023-02-25] MEDS: Melatonin 3 MG Tab PO SCH (20:44)
[2023-02-25] MEDS: Acetaminophen 325 MG Tab PO PRN (20:48)
[2023-02-25] MEDS: Insulin Glargine,Human Rec. Analog 100 Units/ML 3 ML Pen SUBCUT SCH (21:01)
[2023-02-26 04:35] LABS: HEMATOCRIT 33.5 % (38.4-49.7); MEAN CORPUSCULAR HEMOGLOBIN 29.3 pg (31.6-35.5); MEAN CORPUSCULAR HGB CONC 32.8 g/dL (31.6-35.5); MEAN CORPUSCULAR VOLUME 89.3 fL (81.4-99.0); RED BLOOD CELL COUNT 3.75 M/uL (4.14-5.76)
[2023-02-26 04:58] LABS: A/G RATIO 0.5 (1.2-2.2); ALANINE AMINOTRANSFERASE,ALT 46 U/L (12-78); ALBUMIN 2.8 g/dL (3.4-5.0); ALKALINE PHOSPHATASE 101 U/L (46-116); ASPARTATE AMNIOTRANSFERASE,AST 20 U/L (15-37); BILIRUBIN TOTAL 0.6 mg/dL (0.2-1.0); BLOOD UREA NITROGEN,BUN 17 mg/dL (7-18); CALCIUM 8.6 mg/dL (8.5-10.1); CARBON DIOXIDE,CO2 31 mmol/L (21-32); CHLORIDE,CL 103 mmol/L (100-108); CREATININE 0.8 mg/dL (0.8-1.3); EST CRCL DRUG DOSING (CG) 104.16 mL/min; ESTIMATED GFR 101 mL/min (>60); GLUCOSE RANDOM 125 mg/dL (74-106); PHOSPHORUS 3.1 mg/dL (2.5-4.9); POTASSIUM,K 3.9 mmol/L (3.6-5.2); PROTEIN TOTAL,TP 8.1 g/dL (6.4-8.2); SODIUM,NA 139 mmol/L (140-148)
[2023-02-26 05:00] LABS: ANION GAP 8.9 mmol/L (5.0-14.0)
[2023-02-26] MEDS: Insulin Lispro 100 Unit/ML 3 ML KwikPen SUBCUT SCH ×4 (07:39→21:07)
[2023-02-26] MEDS: DULoxetine 30 MG Cap PO SCH ×2 (08:53→20:09)
[2023-02-26] MEDS: Pantoprazole 40 MG Tab.CR PO SCH (08:53)
[2023-02-26] MEDS: Lactulose Soln 10 GM/15 ML 15 ML UD Cup PO SCH ×2 (08:53→20:09)
[2023-02-26] MEDS: Pregabalin 50 MG Cap PO SCH ×3 (08:56→20:09)
[2023-02-26] MEDS: Insulin Glargine,Human Rec. Analog 100 Units/ML 3 ML Pen SUBCUT SCH (21:07)
[2023-02-26] MEDS: Melatonin 3 MG Tab PO SCH (21:08)
[2023-02-27] MEDS: Acetaminophen 325 MG Tab PO PRN ×2 (05:10→13:36)
[2023-02-27] MEDS: Insulin Lispro 100 Unit/ML 3 ML KwikPen SUBCUT SCH ×4 (08:15→21:17)
[2023-02-27] MEDS: Lactulose Soln 10 GM/15 ML 15 ML UD Cup PO SCH ×2 (08:17→21:17)
[2023-02-27] MEDS: Pantoprazole 40 MG Tab.CR PO SCH (08:17)
[2023-02-27] MEDS: DULoxetine 30 MG Cap PO SCH ×2 (08:17→21:18)
[2023-02-27] MEDS: Pregabalin 50 MG Cap PO SCH ×3 (08:22→21:32)
[2023-02-27] MEDS: Melatonin 3 MG Tab PO SCH (21:17)
[2023-02-27] MEDS: Insulin Glargine,Human Rec. Analog 100 Units/ML 3 ML Pen SUBCUT SCH (21:18)
[2023-02-28] MEDS: Insulin Lispro 100 Unit/ML 3 ML KwikPen SUBCUT SCH ×4 (08:08→21:37)
[2023-02-28] MEDS: Pantoprazole 40 MG Tab.CR PO SCH (08:15)
[2023-02-28] MEDS: Pregabalin 50 MG Cap PO SCH ×3 (08:15→21:38)
[2023-02-28] MEDS: DULoxetine 30 MG Cap PO SCH ×2 (08:15→21:38)
[2023-02-28] MEDS: Lactulose Soln 10 GM/15 ML 15 ML UD Cup PO SCH ×2 (08:16→21:38)
[2023-02-28] MEDS: Acetaminophen 325 MG Tab PO PRN ×2 (09:56→20:59)
[2023-02-28] MEDS: oxyCODONE 5 MG Tab PO PRN (20:58)
[2023-02-28] MEDS: Insulin Glargine,Human Rec. Analog 100 Units/ML 3 ML Pen SUBCUT SCH (21:36)
[2023-02-28] MEDS: Melatonin 3 MG Tab PO SCH (21:38)
[2023-03-01 06:31] LABS: CREATININE 0.8 mg/dL (0.8-1.3); EST CRCL DRUG DOSING (CG) 104.16 mL/min
[2023-03-01] MEDS: Pantoprazole 40 MG Tab.CR PO SCH (08:13)
[2023-03-01] MEDS: Pregabalin 50 MG Cap PO SCH ×3 (08:13→20:24)
[2023-03-01] MEDS: Lactulose Soln 10 GM/15 ML 15 ML UD Cup PO SCH ×2 (08:13→20:22)
[2023-03-01] MEDS: DULoxetine 30 MG Cap PO SCH ×2 (08:14→20:21)
[2023-03-01] MEDS: Insulin Lispro 100 Unit/ML 3 ML KwikPen SUBCUT SCH ×4 (08:19→21:12)
[2023-03-01] MEDS ORDERED: 50% Dextrose in Water 50 ML Syringe IVPUSH PRN (13:21)
[2023-03-01] MEDS ORDERED: Glucagon,Human Recombinant 1 MG Vial IM PRN (13:21)
[2023-03-01] MEDS: oxyCODONE 5 MG Tab PO PRN (20:20)
[2023-03-01] MEDS: Melatonin 3 MG Tab PO SCH (20:21)
[2023-03-01] MEDS: Acetaminophen 325 MG Tab PO PRN (20:21)
[2023-03-01] MEDS: Insulin Glargine,Human Rec. Analog 100 Units/ML 3 ML Pen SUBCUT SCH (21:12)
[2023-03-01] MEDS: Morphine 2 MG/ML SYRINGE IVPUSH PRN (21:18)
[2023-03-02] MEDS: Insulin Lispro 100 Unit/ML 3 ML KwikPen SUBCUT SCH ×4 (07:48→21:09)
[2023-03-02] MEDS: DULoxetine 30 MG Cap PO SCH ×2 (09:03→21:08)
[2023-03-02] MEDS: Lactulose Soln 10 GM/15 ML 15 ML UD Cup PO SCH ×2 (09:03→21:08)
[2023-03-02] MEDS: Pregabalin 50 MG Cap PO SCH ×3 (09:03→21:22)
[2023-03-02] MEDS: Insulin Glargine,Human Rec. Analog 100 Units/ML 3 ML Pen SUBCUT SCH ×2 (09:04→21:11)
[2023-03-02] MEDS: Pantoprazole 40 MG Tab.CR PO SCH (09:04)
[2023-03-02] MEDS: Melatonin 3 MG Tab PO SCH (21:08)
[2023-03-02] MEDS: oxyCODONE 5 MG Tab PO PRN (21:15)
[2023-03-03 04:56] LABS: EST CRCL DRUG DOSING (CG) 83.32 mL/min; VANCOMYCIN RANDOM 18.5 ug/mL (0.0-50.0)
[2023-03-03] MEDS: Insulin Lispro 100 Unit/ML 3 ML KwikPen SUBCUT SCH ×2 (08:06→11:37)
[2023-03-03] MEDS: Insulin Glargine,Human Rec. Analog 100 Units/ML 3 ML Pen SUBCUT SCH (08:07)
[2023-03-03] MEDS: Pantoprazole 40 MG Tab.CR PO SCH (08:10)
[2023-03-03] MEDS: Lactulose Soln 10 GM/15 ML 15 ML UD Cup PO SCH (08:10)
[2023-03-03] MEDS: DULoxetine 30 MG Cap PO SCH (08:10)
[2023-03-03] MEDS: Pregabalin 50 MG Cap PO SCH (08:17)
[2023-03-03] MEDS ORDERED: Vancomycin 1.3 GM in Sodium Chloride 0.9% 250 ML IV SCH (09:30)
== END 2023-03-03 13:00 | DRG 617 ==
LOC: JP.ED 19:20 → JP.MS 21:43
PROVIDERS: ADMIT Internal Medicine; ATTEND Surgery
PROC: 0Y6M0Z0 Detachment at Right Foot, Complete, Open Approach (ICD-10-PCS; principal; 2023-02-10)
DX: E11.69 Type 2 diabetes mellitus with other specified complication (principal); E11.52 Type 2 diabetes mellitus with diabetic peripheral angiopathy with gangrene; L03.115 Cellulitis of right lower limb; L97.508 Non-pressure chronic ulcer of other part of unspecified foot with other specified severity; M86.8X8 Other osteomyelitis, other site; N39.0 Urinary tract infection, site not specified; L03.116 Cellulitis of left lower limb; E11.621 Type 2 diabetes mellitus with foot ulcer; G89.29 Other chronic pain; M54.50 Low back pain, unspecified; K75.9 Inflammatory liver disease, unspecified; F31.9 Bipolar disorder, unspecified; B95.61 Methicillin susceptible Staphylococcus aureus infection as the cause of diseases classified elsewhere; E78.00 Pure hypercholesterolemia, unspecified; I10 Essential (primary) hypertension; G47.30 Sleep apnea, unspecified; E11.40 Type 2 diabetes mellitus with diabetic neuropathy, unspecified; E66.9 Obesity, unspecified; F17.210 Nicotine dependence, cigarettes, uncomplicated; Z20.822 Contact with and (suspected) exposure to COVID-19; E11.65 Type 2 diabetes mellitus with hyperglycemia; Z87.820 Personal history of traumatic brain injury; Z88.8 Allergy status to other drugs, medicaments and biological substances; Z98.890 Other specified postprocedural states; Z98.49 Cataract extraction status, unspecified eye; Z79.4 Long term (current) use of insulin; Z79.899 Other long term (current) drug therapy; Z91.040 Latex allergy status; Z68.29 Body mass index [BMI] 29.0-29.9, adult
CPT/HCPCS: 36415; 73000-26-LT; 73000-LT; 73620-26-RT; 73620-RT; 73630-26-LT; 73630-LT; 73718-26-RT; 73718-RT; 80048; 80053; 80202; 81001; 82150; 82565; 82800; 82947; 83036; 83605; 83690; 83735; 83880; 84100; 84145; 85025; 85027; 86140; 87040; 87070; 87075; 87077; 87086; 87088; 87186; 87205; 88307; 88311; 93306; 97110-GO; 97110-GP; 97116-GP; 97162-GP; 97164-GP; 97165-GO; 97530-GP; 97535-GP; 99284; 99285; A9270-GY; C1751; C9113; J1100; J1815; J1815-GY; J1956; J2020; J2185; J2270; J2405; J2543; J2704; J2710; J3010; J3370; J3490; J7030; J7050; J7120; P9047; U0002

== ENCOUNTER 2023-04-30 15:03 | Emergency (ER) | payer MEDICAID ==
[2023-04-30] MEDS ORDERED: QUEtiapine 25 MG Tab PO ONE (15:43)
== END 2023-04-30 16:02 | disposition home or self-care (01) ==
LOC: JP.ED 15:03
DX: T81.31XA Disruption of external operation (surgical) wound, not elsewhere classified, initial encounter (principal); I10 Essential (primary) hypertension; E78.00 Pure hypercholesterolemia, unspecified; E11.9 Type 2 diabetes mellitus without complications; F17.200 Nicotine dependence, unspecified, uncomplicated; E66.9 Obesity, unspecified; Z68.28 Body mass index [BMI] 28.0-28.9, adult; Z79.899 Other long term (current) drug therapy; Z91.040 Latex allergy status; Z88.8 Allergy status to other drugs, medicaments and biological substances; Z79.4 Long term (current) use of insulin
CPT/HCPCS: 99283; A9270

== ENCOUNTER 2023-07-12 19:09 | Emergency (ER) | payer MEDICAID ==
[2023-07-12] MEDS ORDERED: diphenhydrAMINE 50 MG/ML SDV ONE (19:54)
[2023-07-12] MEDS ORDERED: Haloperidol Lactate 5 MG/ML SDV ONE (19:54)
[2023-07-12] MEDS ORDERED: LORazepam 2 MG/ML SDV ONE (19:55)
[2023-07-12] MEDS ORDERED: LORazepam 2 MG/ML SDV IM ONE (20:49)
[2023-07-12] MEDS ORDERED: Haloperidol Lactate 5 MG/ML SDV IM ONE ×2 (20:49→20:50)
[2023-07-12] MEDS ORDERED: diphenhydrAMINE 50 MG/ML SDV IM ONE (20:49)
[2023-07-12 22:15] LABS: AMPHETAMINES SCREEN, URINE NEGATIVE (NEGATIVE); BARBITURATE SCREEN,URINE NEGATIVE (NEGATIVE); BENZODIAZEPINES SCREEN,URINE NEGATIVE (NEGATIVE); METHADONE SCREEN, URINE NEGATIVE (NEGATIVE); METHAMPHETAMINES SCREEN, URINE NEGATIVE (NEGATIVE); OXYCODONE SCREEN,URINE NEGATIVE (NEGATIVE); PROPOXYPHENE SCREEN,URINE NEGATIVE (NEGATIVE); THC SCREEN,URINE 50 NG/ML NEGATIVE (NEGATIVE)
[2023-07-12 22:36] LABS: CALCIUM 9.1 mg/dL (8.5-10.1); CREATININE 1.2 mg/dL (0.8-1.3); EST CRCL DRUG DOSING (CG) 69.72 mL/min; POTASSIUM,K 3.9 mmol/L (3.6-5.2)
[2023-07-12 22:40] LABS: ANION GAP 12.9 mmol/L (5.0-14.0)
[2023-07-13] MEDS ORDERED: Glucagon,Human Recombinant 1 MG Vial IM PRN (07:49)
[2023-07-13] MEDS ORDERED: 50% Dextrose in Water 50 ML Syringe IVPUSH PRN (07:49)
[2023-07-13] MEDS ORDERED: Acetaminophen 325 MG Tab PO PRN (07:52)
[2023-07-13] MEDS ORDERED: Insulin Lispro 100 Unit/ML 3 ML KwikPen SUBCUT SCH (08:00)
[2023-07-13] MEDS ORDERED: Levothyroxine 25 MCG Tab PO SCH (08:15)
[2023-07-13] MEDS ORDERED: Enoxaparin 30 MG/0.3 ML Syringe SUBCUT SCH (09:00)
[2023-07-13] MEDS ORDERED: Nicotine 21 MG/24 Hr Patch TRDERM SCH (09:00)
[2023-07-13] MEDS ORDERED: Insulin Glargine,Human Rec. Analog 100 Units/ML 3 ML Pen SUBCUT SCH (09:00)
[2023-07-13] MEDS ORDERED: Hydrochlorothiazide 25 MG Tab PO SCH (09:00)
[2023-07-13] MEDS ORDERED: Enoxaparin 40 MG/0.4 ML Syringe SUBCUT SCH (09:00)
[2023-07-13] MEDS ORDERED: Metoprolol Succinate 25 MG Tab.ER PO SCH (09:00)
[2023-07-13] MEDS ORDERED: Liraglutide (rDNA Origin) 0.6 MG/0.1 ML 3 ML Pen SUBCUT SCH (09:00)
[2023-07-13] MEDS ORDERED: Tamsulosin 0.4 MG Cap.ER PO SCH (21:00)
[2023-07-13] MEDS ORDERED: QUEtiapine 25 MG Tab PO SCH (21:00)
[2023-07-13] MEDS ORDERED: atorvaSTATin 20 MG Tab PO SCH (21:00)
[2023-07-13] MEDS ORDERED: QUEtiapine 100 MG Tab PO SCH (21:00)
[2023-07-14] MEDS ORDERED: Levothyroxine 50 MCG Tab PO SCH (07:30)
== END 2023-07-13 11:28 | disposition home or self-care (01) ==
LOC: JP.ED 19:09
DX: F31.9 Bipolar disorder, unspecified (principal); F17.200 Nicotine dependence, unspecified, uncomplicated; I10 Essential (primary) hypertension; E78.00 Pure hypercholesterolemia, unspecified; E11.9 Type 2 diabetes mellitus without complications; E66.9 Obesity, unspecified; E78.5 Hyperlipidemia, unspecified; Z79.4 Long term (current) use of insulin; Z79.899 Other long term (current) drug therapy; Z88.8 Allergy status to other drugs, medicaments and biological substances; Z91.040 Latex allergy status; Z63.79 Other stressful life events affecting family and household; Z68.29 Body mass index [BMI] 29.0-29.9, adult
CPT/HCPCS: 36415; 80048; 80143; 80179; 80305; 80307; 96372; 99285; A9270; J1200; J1630; J1650; J1815; J2060; 99284